=== PATIENT | female | born 1955 | race Caucasian/White ===

== ENCOUNTER 2024-04-28 23:45 | Inpatient (IN) | payer OTHER, SELFPAY ==
[2024-04-28] VITALS (11 sets, daily range): BP systolic 124–193; BP diastolic 91–116; BMI 31.2
[2024-04-28 20:10] LABS: % Basophils 0.1 % (0-2); % Immature Granulocytes 0.2 % (0-0.5); % Lymphocytes 6.6 % (20.5-51.1); % Monocytes 12.7 % (1.7-9.3); % Neutrophils 80.4 % (42.2-75.2); Absolute Lymphocytes 0.6 10^3/uL (1.2-3.4); Absolute Monocytes 1.1 10^3/uL (0.1-0.6); Hematocrit 34.3 % (37.0-47.0); Hemoglobin 12.7 g/dL (12.0-16.0); Mean Corpuscular Hgb 35.1 pg (27.0-31.0); Mean Corpuscular Volume 94.8 fL (81.0-99.0); Mean Platelet Volume 9.5 fL (7.4-10.4); Nucleated Red Blood Cells % 0 %; Platelet Count 200 10^3/uL (130-400); Red Blood Cell Count 3.62 10^6/uL (4.20-5.40); Red Cell Dist. Width 13.3 % (11.5-14.5); White Blood Cell Count 8.7 10^3/uL (4.8-10.8)
[2024-04-28 20:14] LABS: ALT (SGPT) 21 U/L (0-35); AST (SGOT) 29 U/L (14-36); Albumin 4.6 g/dl (3.5-5.0); Alkaline Phosphatase 86 U/L (38-126); Blood Urea Nitrogen 6 mg/dl (7-17); Calcium 9.5 mg/dl (8.4-10.2); Carbon Dioxide 19 mmol/L (22-30); Chloride 92 mmol/L (98-107); Estimated Creatinine Clearance 83 ml/min; Glucose 144 mg/dl (70-99); Potassium 3.8 mmol/L (3.5-5.1); Sodium 122 mmol/L (135-145); Total Bilirubin 0.8 mg/dl (0.2-1.3); Total Protein 7.1 g/dl (6.3-8.2); eGFR > 60.00
[2024-04-28] MEDS: NSS 1000 IV ×2 (20:17→23:22)
[2024-04-28 20:32] LABS: Troponin I < 0.012 ng/ml
[2024-04-28] MEDS: CARDIZEM 10 MG IV (21:30)
[2024-04-28] MEDS: DECADRON 10 MG PO (21:31)
[2024-04-28 21:39] LABS: Monotest Negative (Negative)
[2024-04-28 22:12] LABS: COVID-19 Antigen Negative (Negative)
[2024-04-28] MEDS: LOPRESSOR 5 MG IV (22:24)
[2024-04-28] MEDS: TORADOL 15 MG IV (22:24)
--- NOTE | 2024-04-28 22:29 | ED.GENMED ---
History of Present Illness
General
Chief Complaint: Throat Problem
Time Seen by Provider: 04/28/24 19:48
History of Present Illness
History of Present Illness:
68-year-old female with history of hypertension presenting to the emergency department for sore throat and decreased p.o. intake. Patient reports symptoms for the past few days. She is unable to tolerate her medications secondary to pain with
swallowing. She reports that she is able to handle her own secretions she went to urgent care today and was told that she has 'thrush '. She was started on medications,, however had difficulty taking them secondary to the pain in her throat. She
has not been able to take her blood pressure medications. Denies fever. Denies known sick contacts. Denies chest pain or difficulty breathing. Does feel like her heart has been racing a little bit. Denies any known cardiac history or abnormal
heart rhythms. Denies cough. Denies abdominal pain or vomiting.
Past History
Past History
ED Past Medical History: None
ED Past Surgical History: None
Social History
Tobacco: Non-smoker
Alcohol: Former
Drug: None
Personal: Single
Living: alone
Phy Exam
Physical Exam
Physical Exam:
General: Dry mucous membranes
HEENT: No significant tonsillar swelling. Erythema to the uvula and tonsillar region with exudates. No evidence of thrush. Normal phonation of voice. No trismus. Handling secretions without difficulty
Neck: appears supple
CV: Irregularly irregular rhythm, tachycardic
Resp: No accessory muscle use, no increased work of breathing, lungs clear to auscultation bilaterally
Abd: Soft and non-distended, no tenderness to palpation, normal bowel sounds
Extremities: No deformities, no swelling, no erythema, pulses and sensation intact
Neuro: alert, no focal neurologic deficit
: deferred
Rectal: deferred
Psych: Normal affect
Skin: Intact
Course
Orders/Labs/Results
Orders:
Orders
04/28/24 19:19
Electrocardiogram (*1) Urgent
Reason for Study: Chest Pain
EKG- Treatment ONCE
04/28/24 19:21
Complete Blood Count/With Diff Urgent
Comprehensive Metabolic Panel Urgent
Monotest Urgent
Comment: ADDON
Troponin I Urgent
04/28/24 20:08
0.9% Sodium Chloride 1000 ml [Nss] 1,000 ml IV BOLUS
04/28/24 20:29
0.9% Sodium Chloride 1000 ml [Nss] 1,000 ml IV BOLUS
04/28/24 21:17
Dexamethasone Pf [Decadron] 10 mg PO NOW STA
Diltiazem HCl [Cardizem] 10 mg IV NOW STA
04/28/24 21:27
COVID-19 Antigen Urgent
Source: Nasal Swab
Rapid Strep Group A Urgent
TOYIN Source: Throat/Pharynx
Specimen Description:
Date Specimen was Collected: 04/28/24
Time Specimen was Collected: 21:21
04/28/24 22:16
Ketorolac [Toradol] 15 mg IV NOW STA
Metoprolol [Lopressor] 5 mg IV NOW STA
04/28/24 22:37
Amoxicillin [Amoxil] 500 mg PO NOW STA
Abnormal Lab Results
04/28/24
19:21
RBC 3.62 L 10^6/uL
(4.20-5.40)
Hct 34.3 L %
(37.0-47.0)
MCH 35.1 H pg
(27.0-31.0)
Absolute Neuts (auto) 7.0 H 10^3/uL
(1.4-6.5)
Absolute Lymphs (auto) 0.6 L 10^3/uL
(1.2-3.4)
Absolute Monos (auto) 1.1 H 10^3/uL
(0.1-0.6)
Neutrophils % 80.4 H %
(42.2-75.2)
Lymphocytes % 6.6 L %
(20.5-51.1)
Monocytes % 12.7 H %
(1.7-9.3)
Sodium 122 L mmol/L
(135-145)
Chloride 92 L mmol/L
(98-107)
Carbon Dioxide 19 L mmol/L
(22-30)
BUN 6 L mg/dl
(7-17)
Creatinine 0.4 L mg/dL
(0.6-1.0)
Glucose 144 H mg/dl
(70-99)
04/28/24 20:06
04/28/24 19:21
Vital Signs
Initial and Last Documented VS:
Initial Vital Signs
Temp Pulse Resp BP Pulse Ox
98.4 F 62 18 179/113 99
04/28/24 19:16 04/28/24 19:16 04/28/24 19:16 04/28/24 19:16 04/28/24 19:16
Last Documented Vital Signs
Temp Pulse Resp BP Pulse Ox
98.4 F 159 24 182/100 94
04/28/24 19:16 04/28/24 20:00 04/28/24 20:00 04/28/24 20:00 04/28/24 20:00
MDM/Problems Addressed
MDM/Problems Addressed:
68-year-old female with history of hypertension presenting for sore throat and decreased p.o. intake. Vital signs on arrival significant for tachycardia and hypertension, however patient was unable to take her blood pressure medications prior to
arrival.
On arrival, patient is resting comfortably, no acute distress or discomfort. Patient is handling her secretions without difficulty, no airway compromise. Unremarkable pulmonary examination. On examination of the oropharynx, erythema and exudates,
with concern for strep pharyngitis. [place] is also a consideration. Does not appear consistent with thrush. No evidence of peritonsillar abscess. No concern for retropharyngeal abscess. Normal phonation of voice, no trismus. Patient does appear
dry, dry mucous membranes, significantly tachycardic. Patient is in a flutter, no known history. Will give trial of diltiazem. Will obtain laboratory analysis. Will swab for strep, COVID, mono. Will treat therapeutically with Decadron and
Toradol.
22:30 - Patient remains tachycardic after diltiazem. Will try metoprolol. Labs significant for sodium of 122, concern for dehydration. Will continue fluids. Strep and mono negative. High clinical suspicion for strep pharyngitis, so we will
start antibiotics.
22:40 -patient not a candidate for cardioversion, unclear when patient's abnormal rhythm started. Will start on heparin drip for anticoagulation. Plan for admission for acute dehydration, hyponatremia, and new onset a flutter
*EKG
Interpreted by ED Provider?: Yes
EKG Intrepretation Date: 04/28/24
EKG Intrepretation Time: 21:00
Interpretation: abnormal
Comparison EKG: no comparison EKG present
Heart Rate: 168
Rate: tachycardiac
Rhythm: atrial flutter
[place]: normal axis
QRS Pattern: normal QRS
Ischemia: no ischemia
*Critical Care Note
Total Time (30-74mins, 75-104mins- exclusive of procedures): 40
comment:
Critical care statement: A total of 40 minutes of critical care time was provided for this patient. This includes management of unstable vital signs, evaluation of the patient at bedside, reviewing the patient's pertinent medical records, discussion
with consultants, review of old EKGs and review of pertinent medical records. This time with separate from time utilized to perform the aforementioned documented procedures
ED Attending Note
-
Portions of this chart may have been created with voice recognition software.� Occasional wrong word or��sound alike� substitutions may have occurred due to the inherent limitations of voice recognition software.
Discharge Plan
Departure
Prescriptions:
No Action
sennosides [senna] 1 TABLET tablet
2 tab PO BID 0RF
acetaminophen 325 MG tablet
650 mg PO QID 0RF
tramadol 50 MG tablet
50 mg PO TID Qty: 60 0RF
Rx Instructions:
TID X 14 DAYS
THEN Q6H PRN BREAKTHRU PAIN
hydromorphone 2 MG tablet
2 mg PO Q4HPRN PRN (Reason: MODERATE-SEVERE PAIN) Qty: 90 0RF
Rx Instructions:
dx b/l tka
ongoing therapy
1-2 tabs
magnesium hydroxide 30 ML suspension
30 ml PO DAILYPRN PRN (Reason: constipation) 0RF
aspirin 325 MG tablet,delayed release (DR/EC)
325 mg PO DAILY 0RF
losartan 50 MG tablet
50 mg PO DAILY Qty: 5 0RF
Rx Instructions:
X 5 DAYS-
THEN RESUME HCTZ/LOSARTAN HOME MED
losartan-hydrochlorothiazide 1 EACH tablet
1 tab PO .AM Qty: 0 0RF
Rx Instructions:
RESUME IN 6 DAYS WHEN LOSARTAN ALONE IS FINISHED
---HOLD SYSTOLIC BP <130
tizanidine 2 MG tablet
2 mg PO TID Qty: 45 0RF
Rx Instructions:
X7D
THEN Q6H PRN BREAKTHRU SPAM/PAIN
Referrals:
Ksenia Roberts CRNP [Family Provider] -
Interventions
Interventions:
*Risk Screen - Suicide Last Done: 04/28/24 19:16
*General Assessment Last Done: 04/28/24 19:47
*Neglect/Abuse Screening Last Done: 04/28/24 19:16
ED- Fall Risk Assessment Last Done: 04/28/24 19:47
*ED COVID-19 Vaccine History Last Done: 04/28/24 19:47
ED-EENT Assessment Last Done: 04/28/24 19:47
ED- Pulmonary Assessment Last Done: 04/28/24 19:47
Discharge Date and Time
Print Language: ARABIC
[2024-04-28] MEDS: CARDIZEM 125 IV (23:21)
[2024-04-28] MEDS: AMOXIL 500 MG PO (23:21)
--- NOTE | 2024-04-28 23:56 | HPS.HSE ---
Family Physician
-
Family Physician: LUCÍA Robert
Chief Complaint
-
Persistent sore throat and decreased oral intake.
History of Present Illness
Patient is 68 years old female with history of hypertension and spinal stenosis who presents initially to the urgent care center with persistent sore throat and decreased oral intake. Patient denies any fever and chills. Denies chest pain. She
has mild nonproductive cough mostly with secretions that she is unable to swallow due to severe sore throat. Patient was seen in urgent care center and prescribe medication for thrush, although on my examination patient has no thrush. With
persistent symptoms she presented to emergency room today and additional workup was. Consistent with atrial fibrillation, new onset with rapid ventricular response as well as hyponatremia and sodium 122.
At time of my examination patient is not in distress she has persistent sore throat. Denies any chest pain, shortness of breath.
Medical History
Past Medical History
Past Medical History: Reports HTN; Denies Arrhythmia, CAD, CHF or COPD
Past Surgical History: Reports Other (Spine/orthopedic)
Social History
Tobacco: Smoker
Alcohol: None
Employment: Retired
Family History
Family History: Not pertinent
Allergies / Home Medications
Allergies reflects when Allergies were last updated in [facility].
Home Medications with original date entered in [facility]
Allergy/Medication List:
Pending reconciliation.
Review of Systems
-
A 12 point ROS was completed and negative except as noted: Yes
Physical Exam
Vital Signs
Vital Signs
Temp Pulse Resp BP Pulse Ox
98.4 F 159 24 182/100 94
04/28/24 19:16 04/28/24 20:00 04/28/24 20:00 04/28/24 20:00 04/28/24 20:00
Physical Exam
General: Well Developed, Well Nourished and No Apparent Distress
HEENT: NormoCephalic, Moist mucous membranes and Atraumatic; No Thrush
Respiratory: Clear
Cardiac: S1/S2 and Regular Rhythm; No Murmur or Rub
GI: Soft, Non Tender, Non Distended and Normal Bowel Sounds; No Organomegaly
Rectal: Deferred by Provider
Musculoskeletal: No Clubbing, No Cyanosis and No Edema
Skin: No Rash
Neuro: Nonfocal/grossly intact
Laboratory Results
-
04/28/24 20:06
04/28/24 19:21
Laboratory Results
Lactic Acid Cancelled 04/28/24 20:15
Total Bilirubin 0.8 mg/dl (0.2-1.3) 04/28/24 19:21
AST 29 U/L (14-36) 04/28/24 19:21
ALT 21 U/L (0-35) 04/28/24 19:21
Alkaline Phosphatase 86 U/L (38-126) 04/28/24 19:21
Troponin I < 0.012 ng/ml 04/28/24 19:21
Impression/Plan
-
IMPRESSION:
Presentation with sore throat and low oral intake
Upper respiratory tract infection.
Hyponatremia sodium 122
Normal anion gap metabolic acidosis
Contraction alkalosis.
Atrial fibrillation with rapid trickle response new onset
Accelerated hypertension
Conditions prior to admission:
Essential hypertension
Spinal stenosis with chronic back pain
Active tobacco smoker
PLAN:
Upper respiratory tract infection
COVID-negative
Strep antigen negative.
No thrush on exam but
Check chest x-ray.
Empiric doxycycline.
Supper: Changes
Hyponatremia sodium 122.
Asymptomatic
Presentation with low oral intake.
Clinically dehydrated with contraction alkalosis.
Also suspect due to daily ibuprofen administration for chronic back pain.
Was taken off HCTZ sometime ago due to hyponatremia.
Check urine osmolarity
TSH.
Chest x-ray.
Continue to challenge with isotonic solution with serial BMP.
Nephrology consultation
Atrial fibrillation with rapid ventricular response.
No prior history of arrhythmias or cardiovascular conditions other than hypertension.
Initiated on IV Cardizem with better controlled rate. Continue
Echocardiogram
Cardiology consultation in AM.
Further decision for thromboembolic prophylaxis according to workup
Essential hypertension
Continue losartan 100 mg daily
Hold amlodipine while on calcium channel michelle.
Chronic back pain with spinal stenosis
Continue gabapentin
Hold ibuprofen, avoid NSAIDs with hyponatremia
Full code
DVT prophylaxis subcu heparin.
[2024-04-29] VITALS (10 sets, daily range): BP systolic 130–188; BP diastolic 60–103; BMI 31.2
[2024-04-29] MEDS: ANESTHETIC LOZENGE 1 LOZENGE PO ×2 (04:01→11:55)
[2024-04-29] MEDS: HEPARIN 5000 UNITS SC ×2 (04:01→08:16)
[2024-04-29] MEDS: VIBRAMYCIN 100 MG PO (04:02)
[2024-04-29] MEDS: NSS 1000 IV (04:02)
--- NOTE | 2024-04-29 04:33 | PTCARENOTE ---
Patient arrived from ED, able to walk into room and void in the bathroom. Patient tachycardic when ambulating to bathroom. Provider notified of increased HR and BP. Urine sample and blood work drawn, VAT nurse at bedside to place second line for
IVF.
[2024-04-29 04:35] LABS: Urine Sodium 90 mmol/L (30-90)
[2024-04-29 04:44] LABS: Osmolality Urine 234 mOsm/kg (300-900)
[2024-04-29] MEDS: COMPAZINE 5 MG IV (04:44)
[2024-04-29 04:49] LABS: Blood Urea Nitrogen 5 mg/dl (7-17); Carbon Dioxide 19 mmol/L (22-30); Chloride 95 mmol/L (98-107); Estimated Creatinine Clearance 83 ml/min; Glucose 156 mg/dl (70-99); Potassium 3.7 mmol/L (3.5-5.1); Sodium 123 mmol/L (135-145); eGFR > 60.00
[2024-04-29 04:56] LABS: Troponin I < 0.012 ng/ml
[2024-04-29 05:01] LABS: Magnesium 1.5 mg/dl (1.6-2.3)
--- NOTE | 2024-04-29 05:18 | W.PN.UPDATE ---
Update Note
Progress Note Update
-Patient currently on Cardizem drip 10mg/hr, current hr 150s, bp 160/102.SPO2 96% RA, temp 98.5. Denied chest pain or SOB, but complained of constant cough.
-Morning lab reviewed, mag is 1.5 repleted as needed, and will increase Cardizem drip to 15mg/hr.
-Chest x-ray was done on admission and result is pending, cough medicine was added as needed.
--- NOTE | 2024-04-29 05:21 | PTCARENOTE ---
Provider notified of magnesium value, BP and HR. New order for magnesium bolus.
[2024-04-29] MEDS: MAGNESIUM SULFATE 102 GRAMS IV (05:32)
[2024-04-29 05:44] LABS: TSH 0.34 uIU/ml (0.47-4.68)
--- NOTE | 2024-04-29 06:00 | PTCARENOTE ---
Provider order to increase Diltiazem gtt to 15mg/hr.
[2024-04-29] MEDS: COZAAR 100 MG PO (08:15)
[2024-04-29] MEDS: NEURONTIN 300 MG PO ×3 (08:16→21:00)
[2024-04-29] MEDS: LOPRESSOR 5 MG IV (09:49)
--- NOTE | 2024-04-29 10:24 | PTOTSP ---
ST Screening
Chart reviewed. Pt from home for sore throat and odynophagia with reduced PO intake as well as noncompliance with medications. Pt admitted with afib with RVR, hyponatremia, and presumed URI. Pt reportedly with mild non productive cough and varying
reports about difficulty managing secretions due to difficulty swallowing. CXR pending. Pt is afebrile and without leukocytosis. Pt is currently on a regular diet and thin liquids - no documentation of any difficulties with meals thus far. No hx of
DRUG AND ALCOHOL COUNSELLOR services. No other contributory medical conditions.
Would recommend comprehensive DRUG AND ALCOHOL COUNSELLOR assessment at this time to rule-out any other contributory factors for odynophagia as well as ensure pt is protecting airway with secretions and PO intake. Please place consult when able. Thank you.
--- NOTE | 2024-04-29 10:51 | W.PN.HOSP.TC ---
Today's Communication/Plan
-
consult cards
await renal
follow labs
Assessment / Plan
Assessment / Plan
pt is a 68 year old female
new onset atrial fibrillation with RVR--no prior history--agree with ECHO--cont cardizem drip--likely needs AC--consult cards
Hyponatremia sodium 122-- likely due to low oral intake/ dehydration--Also suspect SIADH due to daily ibuprofen administration for chronic back pain--Was taken off HCTZ sometime ago due to hyponatremia--urine osmolality low at 234, urine sodium
90--TSH low 0.34--follow labs--await renal
hypomagnesemia--replete, follow labs
Upper respiratory tract infection--COVID-negative--Strep antigen negative--Empiric doxycycline?--would d/c
Essential hypertension--Continue losartan 100 mg daily--Hold amlodipine while on calcium channel michelle.
Chronic back pain with spinal stenosis--Continue gabapentin--Hold ibuprofen, avoid NSAIDs with hyponatremia
code status --Full code
DVT prophylaxis subcu heparin.
Anticipated Discharge: > 48 hours
Subjective/Interval History
-
Date of Service: April 29, 2024
pt not feeling well but not specific
Objective Data
-
Labs:
Laboratory Results
04/29/24
04:11
Sodium 123 L
Potassium 3.7
Chloride 95 L
Carbon Dioxide 19 L
BUN 5 L
Creatinine 0.4 L
Glucose 156 H
Calcium 9.0
Vital Signs:
max temp for 24 hours
04/29/24
07:00
Temp 98.5 F
Vital Signs
Temp Pulse Resp BP Pulse Ox
98.5 F 135 18 151/90 97
04/29/24 07:00 04/29/24 09:49 04/29/24 07:00 04/29/24 09:49 04/29/24 07:00
I&O
04/28/24 04/29/24 04/30/24
06:59 06:59 06:59
Intake Total 880 / 880
Balance 880 / 880
Review of Systems
-
All other systems: Reviewed and negative
Physical Exam
-
General: Well Developed, Well Nourished and No Apparent Distress
HEENT: Normocephalic and Atraumatic
Respiratory: Clear to Auscultation; Negative Wheezes, Rhonchi or Crackles
Cardiac: Irregular Rhythm
GI: Soft, Nontender, Nondistended and Normal Bowel Sounds
Musculoskeletal: No Clubbing, No Cyanosis and No Edema
Neuro: Awake
Psych: Calm
[2024-04-29] MEDS: SODIUM CHLORIDE 3% 250 IV (11:54)
[2024-04-29] MEDS: MAGNESIUM SULFATE 50 IV (11:54)
[2024-04-29 12:04] LABS: ALT (SGPT) 19 U/L (0-35); AST (SGOT) 26 U/L (14-36); Alkaline Phosphatase 84 U/L (38-126); Blood Urea Nitrogen 6 mg/dl (7-17); Carbon Dioxide 17 mmol/L (22-30); Chloride 95 mmol/L (98-107); Estimated Creatinine Clearance 83 ml/min; Glucose 124 mg/dl (70-99); Magnesium 1.8 mg/dl (1.6-2.3); Potassium 3.7 mmol/L (3.5-5.1); Sodium 122 mmol/L (135-145); Total Bilirubin 0.7 mg/dl (0.2-1.3); Total Protein 6.4 g/dl (6.3-8.2); eGFR > 60.00
--- NOTE | 2024-04-29 12:04 | W.CON.NEPH ---
Consultation
-
Date/Time Consultation Requested: April 29, 2024 8 AM
Date/Time Consultation Performed: April 29, 2024 9 AM
Requesting Provider: Dr. Escoto
Performing Provider: Dr. Guzman
Reason for Consultation: Hyponatremia
Medical History
-
Chief Complaint: Difficulty swallowing
History of Present Illness:
This is a 60-year-old female with hypertension on a multidrug regimen previously well-controlled, hyperlipidemia controlled with statin therapy. She does have orthopedic issues and pain for which she has a lidocaine patch. She also uses NSAIDs as
required. Recently she had developed a significant sore throat with pain with swallowing. This apparently has been present for some time at least since March. She has seen her primary care physician. She says that she has lost 7 pounds since that
timeframe because of decreased oral intake. She also says that she does not drink very much fluid, likely less than 40 ounces per day. Because of these persistent symptoms she finally came to the emergency room. She was noted to also have new
onset atrial fibrillation with rapid ventricular rate and a sodium level of 122. She was hypertense
Past Medical History
Hypertension, orthopedic surgery, hyperlipidemia
Social History
Tobacco: Smoker
Alcohol: Daily
Family History
No CKD
Allergies / Home Medications
Allergy/AdvReac Type Severity Reaction Status Date / Time
No Known Allergies Allergy Verified 04/28/24 19:16
�Medication �Instructions �Recorded �Confirmed �Type
amlodipine 2.5 mg tablet 2.5 mg PO DAILY Blood Pressure 04/29/24 04/29/24 History
gabapentin 300 mg capsule 300 mg PO TID Pain 04/29/24 04/29/24 History
ibuprofen 400 mg tablet 400 mg PO Q8H Pain 04/29/24 04/29/24 History
ibuprofen 800 mg tablet 800 mg PO TID Pain 04/29/24 04/29/24 History
lidocaine 4 % topical patch 1 patch topical DAILY PRN pain 04/29/24 04/29/24 History
losartan 100 mg tablet 100 mg PO DAILY Blood Pressure 04/29/24 04/29/24 History
simvastatin 10 mg tablet 10 mg PO HS High Cholesterol 04/29/24 04/29/24 History
Review of Systems
-
Difficulty swallowing as above. She has good appetite. No issues with urine output.
All other systems: Negative unless noted
Physical Exam
Vital Signs
Vital Signs
Temp Pulse Resp BP Pulse Ox
97.8 F 77 17 131/78 96
04/29/24 11:03 04/29/24 11:03 04/29/24 11:03 04/29/24 11:03 04/29/24 11:03
Lab Results
WBC Cancelled 04/28/24 20:06
RBC Cancelled 04/28/24 20:06
Hgb Cancelled 04/28/24 20:06
Hct Cancelled 04/28/24 20:06
Plt Count Cancelled 04/28/24 20:06
eGFR > 60.00 04/29/24 04:11
Physical Exam
Patient is awake alert oriented and in no distress. Mood and affect were pleasant, insight and judgment were good. Pupils are equal round and reactive to light, extraocular movements are intact, sclera were anicteric. Hearing was normal, ears and
nose are intact. Oropharynx was clear. Neck was supple with trachea midline and no thyromegaly. Heart was regular rate and rhythm without rubs. Lower extremities without edema. Lungs were clear to auscultation bilaterally and with normal
excursion. Abdomen was soft, nontender, with normal active bowel sounds, and no hepatosplenomegaly. Skin was without rash and with normal turgor.
Data Reviewed
-
Radiology: Image Personally Visualized and interpreted (Chest x-ray on April 29, 2024 by my reading shows no acute disease)
Medical Tests (Nuc Med, Echo etc): Image Personally Visualized and interpreted (EKG on 04/28/2024 by read shows atrial flutter nonspecific ST-T wave)
Labs: Labs Reviewed by me (Hemoglobin 12.7, sodium 122, potassium 3.7, chloride 95, bicarbonate 17, BUN 6, creatinine 0.4, magnesium 1.8, urine osmolality 234, urine sodium 90)
Old Records: Reviewed (On February 02, 2018 sodium 133)
Assessment/Plan
-
Assessment
Hyponatremia
Metabolic acidosis
Difficulty swallowing decreased oral intake
Hypertension
Hyperlipidemia
A-fib rapid ventricular rate
Hypomagnesemia
Plan
Given her inability to take consistent oral intake we will use hypertonic saline
Serial BMP
Discontinue isotonic IV fluids
We may consider intravenous Lasix if needed
Replete magnesium
She has a nonanion gap metabolic acidosis and may benefit from oral bicarbonate once oral intake improves
[2024-04-29 12:15] LABS: Troponin I < 0.012 ng/ml
--- NOTE | 2024-04-29 14:04 | CON.CAR ---
Consultation
Consultation Request
Date/Time Consultation Requested: 04/29/2024
Date/Time Consultation Performed: 04/29/2024
Requesting Provider: Dr. Escoto
Performing Provider: Dr. Ruiz
Reason for Consultation: New onset atrial fibrillation with RVR
Medical History
-
Chief Complaint: Difficulty swallowing/throat pain
History of Present Illness:
68-year-old female with hypertension, hyperlipidemia, obesity, and chronic continued cigarette use (typically one half PPD since age of 16) admitted with throat pain. Patient presented with hypertensive crisis (blood pressure 189/116 mmHg) and was
found to be in atrial fibrillation with RVR (new onset). Patient was also found to have significant electrolyte abnormalities (hyponatremia low bicarbonate) and low TSH. Cardiology was consulted for atrial fibrillation. Patient denies chest pain
or shortness of breath, but states that she has had intermittent palpitations over the past few days. The patient drinks 1-2 glasses of wine daily.
Past Medical History
Past Medical History: HTN and Hypercholesterolemia
Past Surgical History: Orthopedic (Laminectomy (2017), bilateral knee replacements (01/2018)) and Other
Social History
Tobacco: Smoker (One half PPD since age 16)
Alcohol: Daily
Drug: None
Family History
Family History: Reviewed & Not Pertinent
Allergies / Home Medications
Allergy/AdvReac Type Severity Reaction Status Date / Time
No Known Allergies Allergy Verified 04/28/24 19:16
�Medication �Instructions �Recorded �Confirmed �Type
amlodipine 2.5 mg tablet 2.5 mg PO DAILY Blood Pressure 04/29/24 04/29/24 History
gabapentin 300 mg capsule 300 mg PO TID Pain 04/29/24 04/29/24 History
ibuprofen 400 mg tablet 400 mg PO Q8H Pain 04/29/24 04/29/24 History
ibuprofen 800 mg tablet 800 mg PO TID Pain 04/29/24 04/29/24 History
lidocaine 4 % topical patch 1 patch topical DAILY PRN pain 04/29/24 04/29/24 History
losartan 100 mg tablet 100 mg PO DAILY Blood Pressure 04/29/24 04/29/24 History
simvastatin 10 mg tablet 10 mg PO HS High Cholesterol 04/29/24 04/29/24 History
Review of Systems
-
History Source: Patient
All other systems: Negative unless noted
Musculoskeletal: Joint Pain
Physical Exam
Vital Signs
Temp Pulse Resp BP Pulse Ox
97.8 F 77 17 131/78 96
04/29/24 11:03 04/29/24 11:03 04/29/24 11:03 04/29/24 11:03 04/29/24 11:03
Lab Results
04/28/24 20:06
Troponin I < 0.012 ng/ml 04/29/24 11:24
Physical Exam
General: No Apparent Distress and Comfortable
HEENT: Normocephalic
Respiratory: Rhonchi (Scant bibasilar)
Cardiac: S1/S2, Regular Rhythm, Murmur (2/6 FERNANDA) and Peripheral Edema (Trace)
Breast: Deferred by me
GI: Soft
Rectal: Deferred by Provider
Musculoskeletal: No Clubbing, No Cyanosis and Edema (Trace)
Skin: Warm and Dry
Neuro: AO x 3
Psych: Calm
Impression / Plan
-
68-year-old female with hypertension, hyperlipidemia, obesity, and chronic continued cigarette use (typically one half PPD since age of 16) admitted with throat pain. Patient presented with hypertensive crisis (blood pressure 189/116 mmHg) and was
found to be in atrial fibrillation with RVR (new onset). Patient was also found to have significant electrolyte abnormalities (hyponatremia low bicarbonate) and low TSH. Cardiology was consulted for atrial fibrillation. Patient denies chest pain
or shortness of breath, but states that she has had intermittent palpitations over the past few days. The patient drinks 1-2 glasses of wine daily.
New onset paroxysmal atrial fibrillation with RVR:
-The patient converted back to sinus rhythm on a Cardizem drip this morning.
-Will discontinue Cardizem drip and placed on Cardizem CD 180 mg daily.
-Transthoracic echocardiogram tomorrow.
-Patient will need to undergo an eventual ischemic workup (outpatient stress test); cardiac enzymes negative.
-Will start the patient on a heparin drip for now; transition to NOAC prior to discharge.
-Continue insurance and benefits clerk.
-Will obtain an EKG now that the patient is in sinus rhythm
Electrolyte abnormalities:
-Patient with significant hyponatremia 122, bicarbonate at 17.
-In a chronic smoker, malignancy should be included in differential diagnosis.
-Nephrology following/managing.
-TSH is low; management as per primary Hospitalist team.
Hypertensive crisis:
-Blood pressure is now controlled.
-PO Cardizem as above.
-Continue to trend.
Systolic heart murmur:
-Loudest at RUSB; likely secondary to aortic stenosis.
-Echocardiogram tomorrow.
Hyperlipidemia:
-Check lipid panel
-Continue statin.
Cigarette smoker:
-Counseled on the importance of cessation.
Obesity:
-Weight loss and regular exercise recommended
Data Reviewed
-
EKG: Report Reviewed by me
Labs: Labs Reviewed by me
[2024-04-29] MEDS: CARDIZEM CD 180 MG PO (14:26)
[2024-04-29] MEDS: HEPARIN 4000 UNITS IV (14:26)
[2024-04-29 15:02] LABS: Blood Urea Nitrogen 7 mg/dl (7-17); Carbon Dioxide 17 mmol/L (22-30); Chloride 96 mmol/L (98-107); Estimated Creatinine Clearance 83 ml/min; Glucose 117 mg/dl (70-99); Potassium 3.7 mmol/L (3.5-5.1); Sodium 122 mmol/L (135-145); eGFR > 60.00
[2024-04-29 15:07] LABS: APTT 28.9 Sec (23.4-35.0)
[2024-04-29 15:20] LABS: Hematocrit 30.8 % (37.0-47.0); Hemoglobin 11.5 g/dL (12.0-16.0); Mean Corp Hgb Conc. 37.3 g/dL (33.0-37.0); Mean Corpuscular Hgb 35.2 pg (27.0-31.0); Mean Corpuscular Volume 94.2 fL (81.0-99.0); Mean Platelet Volume 9.8 fL (7.4-10.4); Platelet Count 223 10^3/uL (130-400); Red Blood Cell Count 3.27 10^6/uL (4.20-5.40); Red Cell Dist. Width 13.2 % (11.5-14.5); White Blood Cell Count 7.6 10^3/uL (4.8-10.8)
--- NOTE | 2024-04-29 16:15 | CM ---
Initial Assessment completed
Pharmacy verified: [facility], [id number] [place]
Patient lives alone in a one floor modular home; Ramp to enter; bath has walk-in shower w/ grab bar and bench
Independent with ambulation, ADLs; drives
Transportation: Friend will provide ride home
No SNF history
If home health needed, preference is [facility]
Plan: discharge to home when medically stable
[2024-04-29] MEDS: HEPARIN 25000 UNITS/250 ML IV (16:48)
[2024-04-29] MEDS: FIRST-MOUTHWASH BLM SUSPENSION 5 ML PO (21:45)
[2024-04-29 22:56] LABS: APTT 46.2 Sec (23.4-35.0)
[2024-04-30 03:41] VITALS: BP 149/82
[2024-04-30 06:27] LABS: Hematocrit 30.1 % (37.0-47.0); Hemoglobin 11.1 g/dL (12.0-16.0); Mean Corp Hgb Conc. 36.9 g/dL (33.0-37.0); Mean Corpuscular Hgb 34.8 pg (27.0-31.0); Mean Corpuscular Volume 94.4 fL (81.0-99.0); Mean Platelet Volume 9.5 fL (7.4-10.4); Platelet Count 211 10^3/uL (130-400); Red Blood Cell Count 3.19 10^6/uL (4.20-5.40); Red Cell Dist. Width 13.2 % (11.5-14.5); White Blood Cell Count 7.7 10^3/uL (4.8-10.8)
[2024-04-30 06:36] LABS: APTT 55.9 Sec (23.4-35.0)
[2024-04-30 06:54] LABS: ALT (SGPT) 19 U/L (0-35); AST (SGOT) 27 U/L (14-36); Albumin 3.7 g/dl (3.5-5.0); Alkaline Phosphatase 75 U/L (38-126); Blood Urea Nitrogen 9 mg/dl (7-17); Calcium 8.9 mg/dl (8.4-10.2); Carbon Dioxide 20 mmol/L (22-30); Chloride 101 mmol/L (98-107); Estimated Creatinine Clearance 83 ml/min; Glucose 101 mg/dl (70-99); Magnesium 1.9 mg/dl (1.6-2.3); Potassium 3.3 mmol/L (3.5-5.1); Sodium 128 mmol/L (135-145); Total Bilirubin 0.6 mg/dl (0.2-1.3); eGFR > 60.00
[2024-04-30 07:00] VITALS: BP 139/71
[2024-04-30] MEDS: COZAAR 100 MG PO (07:51)
[2024-04-30] MEDS: CARDIZEM CD 180 MG PO (07:51)
[2024-04-30] MEDS: NEURONTIN 300 MG PO ×3 (07:51→21:01)
[2024-04-30] MEDS: FIRST-MOUTHWASH BLM SUSPENSION 5 ML PO ×2 (07:53→16:30)
--- NOTE | 2024-04-30 09:03 | W.PN.CD ---
Today's Communication / Plan
-
-The patient remains in sinus rhythm; Cardizem drip discontinued.
-PO Cardizem CD 180 mg daily, but patient is unable to swallow pills or eat/drink due to dysphagia and odynophagia--recommend ENT evaluation.
-Transthoracic echocardiogram today.
-Continue heparin drip for now; transition to NOAC prior to discharge once swallowing issues resolved.
-TSH is low--will check free T4; management as per primary Hospitalist team.
-Will check lipid panel and hemoglobin A1c.
Impression / Plan
-
68-year-old female with hypertension, hyperlipidemia, obesity, and chronic continued cigarette use (typically one half PPD since age of 16) admitted with throat pain. Patient presented with hypertensive crisis (blood pressure 189/116 mmHg) and was
found to be in atrial fibrillation with RVR (new onset). Patient was also found to have significant electrolyte abnormalities (hyponatremia low bicarbonate) and low TSH. Cardiology was consulted for atrial fibrillation. Patient denies chest pain
or shortness of breath, but states that she has had intermittent palpitations over the past few days. The patient drinks 1-2 glasses of wine daily.
New onset paroxysmal atrial fibrillation with RVR:
-The patient remains in sinus rhythm; Cardizem drip discontinued.
-PO Cardizem CD 180 mg daily, but patient is unable to swallow pills or eat/drink due to dysphagia and odynophagia--recommend ENT evaluation.
-Transthoracic echocardiogram today.
-Continue heparin drip for now; transition to NOAC prior to discharge once swallowing issues resolved.
-Continue ink grinder.
Electrolyte abnormalities:
-Patient with significant hyponatremia 122, bicarbonate at 17; improving.
-In a chronic smoker, malignancy should be included in differential diagnosis.
-Nephrology following/managing.
-TSH is low--will check free T4; management as per primary Hospitalist team.
Hypertensive crisis:
-Blood pressure remains controlled.
-Once tolerating pills, continue PO Cardizem and losartan.
Systolic heart murmur:
-Loudest at RUSB; likely secondary to aortic stenosis.
-Echocardiogram today.
Hyperlipidemia:
-Will check lipid panel and hemoglobin A1c.
Hyperlipidemia:
-Check lipid panel
-Continue statin.
Cigarette smoker:
-Counseled on the importance of cessation.
Obesity:
-Weight loss and regular exercise recommended
Physical Exam
Vital Signs/Labs
Vital Signs
Temp Pulse Resp BP Pulse Ox
98.5 F 81 17 139/71 97
04/30/24 07:00 04/30/24 07:00 04/30/24 07:00 04/30/24 07:00 04/30/24 07:00
04/29/24 04/30/24 05/01/24
06:59 06:59 06:59
Actual Weight 74.843 kg
04/30/24 05:56
04/30/24 05:56
APTT 55.9 Sec (23.4-35.0) H 04/30/24 05:57
Magnesium 1.9 mg/dl (1.6-2.3) 04/30/24 05:56
TSH 0.34 uIU/ml (0.47-4.68) L 04/29/24 04:11
LAB Results
04/28/24 04/29/24 04/29/24
19:21 04:11 11:24
Troponin I < 0.012 < 0.012 < 0.012
Physical Exam
Constitutional: No acute distress and Comfortable
EENT: Anicteric
Cardiovascular: Rhythm & rate is regular, Pedal edema is absent, Systolic murmur present (2/) and S1S2 is normal
Respiratory: Respiratory effort normal and Lungs clear to auscul.
GI: Soft
Neuro/Psych: AO x 3
Other: Skin (Warm, dry, intact)
Data Reviewed
-
Date of Service: April 30, 2024
EKG: Tracing Personally Visualized and interpreted (Telemetry: Sinus rhythm)
Medical Tests (PFT, Pathology etc): Discussed with Patient
Labs: Labs Reviewed by me
[2024-04-30] MEDS: KCL 270 MEQ IV (09:15)
[2024-04-30 10:58] VITALS: BP 141/72
--- NOTE | 2024-04-30 11:56 | PTOTSP ---
ST Acute Care Evaluation
Pt presents with a suspected pharyngeal dysphagia as characterized by occasional wet vocal quality, throat clearing, and coughing at baseline prior to PO intake, as well as occasional prompt and delayed, strong coughing with both solids and liquid
ingestion. It is difficult to determine whether these symptoms are pt's originating problem (i.e., organic pharyngeal dysphagia) or a reactive response to pharyngeal and laryngeal irritation from ongoing coughing or another underlying dx. Pt's
'burning sensation' description with swallowing as well as the delayed onset of coughing with PO is suspicious for possible GERD/LPR.
Recommendations:
- Continue with regular solids and thin liquids - choose softer items that will assuage throat pain.
- Medications: try whole in pureed consistencies; crush if needed.
- Aspiration precautions: HOB upright for all PO intake, small bites/sips, alternate bites/sips, and cough when needed.
- CLINICAL DATA ASSISTANT will continue to follow to ensure pt is improving her tolerance of PO intake and protecting her airway consistently, as well as to determine whether pt would benefit from additional objective/instrumental swallow assessments.
- Will look out for ENT to assessment results.
- Consider GI consult if LPR/GERD is suspected as originating cause of laryngeal/pharyngeal irritation.
--- NOTE | 2024-04-30 12:02 | CON.MD ---
Consultation - Medical
-
Pt seen and consult dictated.
Laryngoscopy performed at bedside.
Results c/w acute epiglotitis and possible thrush component.
Will treat with appropriate antibiotics and antifungals.
--- NOTE | 2024-04-30 12:13 | W.PN.NEPH.PH ---
Today's Communication / Plan
-
- sodium bicarb
- replace K
- trend BMPs
Assessment/Plan
-
Assessment
Hyponatremia
Metabolic acidosis
Difficulty swallowing decreased oral intake
Hypertension
Hyperlipidemia
A-fib rapid ventricular rate
Hypomagnesemia
Plan
s/p HTS with Na improving from 122 --> 128. of note, the patient does have some baseline hyponatremia
K repletion is ongoing which will further correct Na
Will give IV sodium bicarb as well to correct NAGMA, likely will need oral bicarb once she is able to take better PO
no need for IV lasix currently
Serial BMP
-
-
Date of Service: April 30, 2024
CC / HPI / ROS
-
Chief Complaint:
hyponatremia
History of Present Illness:
Na 122 --> 128 with HTS
still unable to tolerate PO
Review of Systems:
feeling improved
minimal PO intake
Labs
-
Labs:
WBC 7.7 10^3/uL (4.8-10.8) 04/30/24 05:56
RBC 3.19 10^6/uL (4.20-5.40) L 04/30/24 05:56
Hgb 11.1 g/dL (12.0-16.0) L 04/30/24 05:56
Hct 30.1 % (37.0-47.0) L 04/30/24 05:56
Plt Count 211 10^3/uL (130-400) 04/30/24 05:56
Sodium 128 mmol/L (135-145) L 04/30/24 05:56
Potassium 3.3 mmol/L (3.5-5.1) L 04/30/24 05:56
Chloride 101 mmol/L (98-107) 04/30/24 05:56
Carbon Dioxide 20 mmol/L (22-30) L 04/30/24 05:56
BUN 9 mg/dl (7-17) 04/30/24 05:56
Creatinine 0.5 mg/dL (0.6-1.0) L 04/30/24 05:56
eGFR > 60.00 04/30/24 05:56
Glucose 101 mg/dl (70-99) H 04/30/24 05:56
Calcium 8.9 mg/dl (8.4-10.2) 04/30/24 05:56
Albumin 3.7 g/dl (3.5-5.0) 04/30/24 05:56
Physical Exam
-
Vital Signs:
Vital Signs
Temp Pulse Resp BP Pulse Ox
98.2 F 85 17 141/72 97
04/30/24 10:58 04/30/24 10:58 04/30/24 10:58 04/30/24 10:58 04/30/24 10:58
Cardiovascular:: Regular rate and rhythm
Respiratory:: Bilateral: CTA
Lung Excursion:: Normal
Abdomen:: Nontender and Soft
Bowel Sounds:: Normal
Extremity Edema:: None: Bilateral:
[place] Catheter: No
--- NOTE | 2024-04-30 14:04 | W.PN.HOSP.TC ---
Today's Communication/Plan
-
ENT eval
Advance diet as toelrated
Maintain tele monitor esme since off of cardizem gtt and has not recieved po cardizem as of yet
Assessment / Plan
Assessment / Plan
NAD, resting comfortably in bed
Scleral anicteric
Moist mucous membranes
No JVD, no thyromegaly, no enlarged mandibular node
CTA bilateral
Normal S1-S2 no murmurs
Soft nontender nondistended bowel sounds active
No peripheral pitting edema
Moves extremities spontaneously
AAOx3
New onset atrial fibrillation with RVR . 2D echocardiogram pending. Continue Cardizem p.o. once able to to tolerate p.o. intake, continue heparin drip, heparin protocol, every 6 PTT
-Cardiology recommending outpatient ischemic workup
Hyponatremia improving in part likely related to poor p.o. intake. Expect to continue to improve on fluids
Odynophagia concern for epiglottitis, ENT consult for possible NPL.
Hypokalemia replete as needed
Advance diet as tolerated
Anticipated Discharge: Within 24 hours
Subjective/Interval History
-
Date of Service: April 30, 2024
Seen and examined. No new complaints. No acute overnight events.
Continues to have difficulty swallowing. Unable to drink tea as she is complaining of pain
States that this started to occur when she was working in her garden. Did not have any throat swelling or difficulty with handling drool.
No external compression noted on exam
Objective Data
-
Labs:
Laboratory Results
04/30/24 04/30/24 04/30/24
05:56 05:57 13:01
WBC 7.7
Hgb 11.1 L
Hct 30.1 L
Plt Count 211
APTT 55.9 H Pending
Sodium 128 L
Potassium 3.3 L
Chloride 101
Carbon Dioxide 20 L
BUN 9
Creatinine 0.5 L
Glucose 101 H
Calcium 8.9
Total Bilirubin 0.6
AST 27
ALT 19
Alkaline Phosphatase 75
Vital Signs:
Vital Signs
Temp Pulse Resp BP Pulse Ox
98.2 F 85 17 141/72 97
04/30/24 10:58 04/30/24 10:58 04/30/24 10:58 04/30/24 10:58 04/30/24 10:58
I&O
04/29/24 04/30/24 05/01/24
06:59 06:59 06:59
Intake Total 880 / 880 1080 / 1080
Balance 880 / 880 1080 / 1080
[2024-04-30] MEDS: HEPARIN 25000 UNITS/250 ML IV (14:17)
[2024-04-30 14:24] LABS: APTT 57.8 Sec (23.4-35.0)
[2024-04-30 15:00] VITALS: BP 156/80
[2024-04-30] MEDS: SODIUM BICARBONATE 1150 MEQ IV (16:23)
[2024-04-30] MEDS: UNASYN IV ×2 (16:24→21:01)
--- NOTE | 2024-04-30 17:03 | CM ---
Case management following for d/c planning
Chart reviewed
Had laryngoscopy today
Antibiotics/antifungals
CM will follow for d/c needs
[2024-04-30] MEDS: ANESTHETIC LOZENGE 1 LOZENGE PO (18:18)
[2024-04-30 19:00] VITALS: BP 165/87
[2024-04-30] MEDS: ROBITUSSIN 100 MG PO (21:01)
[2024-04-30 21:11] LABS: APTT 76.3 Sec (23.4-35.0)
[2024-04-30] MEDS: LOPRESSOR 5 MG IV (22:03)
--- NOTE | 2024-04-30 22:15 | PTCARENOTE ---
Patient's HR in 140s-150s ( Afib). Lopressor IV given as ordered.
[2024-04-30 23:32] VITALS: BP 153/85
[2024-05-01] VITALS (7 sets, daily range): BP systolic 124–161; BP diastolic 70–99; BMI 31.2
[2024-05-01] MEDS: UNASYN IV ×4 (02:34→20:36)
[2024-05-01] MEDS: SODIUM BICARBONATE 1150 MEQ IV ×2 (02:46→16:31)
[2024-05-01 04:01] LABS: APTT 75.5 Sec (23.4-35.0)
[2024-05-01 04:02] LABS: HDL Cholesterol 80 mg/dl; LDL Cholesterol, Calculated 63 mg/dl; Total Cholesterol 157 mg/dl (50-199); Triglyceride 70 mg/dl (10-149); Very Low Density Lipoprotein 14 mg/dl (0-30)
[2024-05-01] MEDS: HEPARIN 25000 UNITS/250 ML IV ×2 (04:42→20:49)
[2024-05-01 04:51] LABS: Hematocrit 31.9 % (37.0-47.0); Hemoglobin 11.9 g/dL (12.0-16.0); Mean Corp Hgb Conc. 37.3 g/dL (33.0-37.0); Mean Corpuscular Hgb 35.4 pg (27.0-31.0); Mean Corpuscular Volume 94.9 fL (81.0-99.0); Mean Platelet Volume 9.7 fL (7.4-10.4); Platelet Count 242 10^3/uL (130-400); Red Blood Cell Count 3.36 10^6/uL (4.20-5.40); White Blood Cell Count 6.9 10^3/uL (4.8-10.8)
[2024-05-01] MEDS: ANESTHETIC LOZENGE 1 LOZENGE PO ×3 (08:07→17:04)
--- NOTE | 2024-05-01 08:29 | W.PN.CD ---
Today's Communication / Plan
-
-The patient reverted back to atrial fibrillation with RVR; currently experiencing palpitations.
-Patient still unable to swallow pills due to epiglottitis (appreciate ENT input); will place back on Cardizem drip and hold PO Cardizem CD 180 mg daily.
-Echocardiogram yesterday revealed an LVEF of 65-70% and aortic sclerosis without stenosis.
-Continue heparin drip; transition to NOAC prior to discharge once swallowing issues resolved.
-Cholesterol is fairly controlled; hemoglobin A1c pending (goal LDL would be less than 55, if diabetic).
Impression / Plan
-
68-year-old female with hypertension, hyperlipidemia, obesity, and chronic continued cigarette use (typically one half PPD since age of 16) admitted with throat pain. Patient presented with hypertensive crisis (blood pressure 189/116 mmHg) and was
found to be in atrial fibrillation with RVR (new onset). Patient was also found to have significant electrolyte abnormalities (hyponatremia low bicarbonate) and low TSH. Cardiology was consulted for atrial fibrillation. Patient denies chest pain
or shortness of breath, but states that she has had intermittent palpitations over the past few days. The patient drinks 1-2 glasses of wine daily.
New onset paroxysmal atrial fibrillation with RVR:
-The patient reverted back to atrial fibrillation with RVR; currently experiencing palpitations.
-Patient still unable to swallow pills due to epiglottitis (appreciate ENT input); will place back on Cardizem drip and hold PO Cardizem CD 180 mg daily.
-Echocardiogram yesterday revealed an LVEF of 65-70% and aortic sclerosis without stenosis.
-Continue heparin drip; transition to NOAC prior to discharge once swallowing issues resolved.
-Continue machine ii coremaker.
-Eventual outpatient stress test for ischemic evaluation.
Electrolyte abnormalities:
-Patient with significant hyponatremia 122, bicarbonate at 17; improving.
-In a chronic smoker, malignancy should be included in differential diagnosis.
-Nephrology following/managing.
-TSH is low, but free T4 is normal.
Hypertensive crisis:
-Blood pressure is starting to increase as patient is unable to swallow pills.
-Starting Cardizem drip as above; continue to monitor.
Systolic heart murmur:
-Aortic sclerosis without stenosis..
Hyperlipidemia:
-Cholesterol is fairly controlled; hemoglobin A1c pending (goal LDL would be less than 55, if diabetic).
-Continue statin.
Cigarette smoker:
-Counseled on the importance of cessation.
Obesity:
-Weight loss and regular exercise recommended
Physical Exam
Vital Signs/Labs
Vital Signs
Temp Pulse Resp BP Pulse Ox
99.2 F 89 16 161/95 96
05/01/24 07:36 05/01/24 07:36 05/01/24 07:36 05/01/24 07:36 05/01/24 07:36
05/01/24 03:04
APTT 75.5 Sec (23.4-35.0) H 05/01/24 03:04
Magnesium 1.9 mg/dl (1.6-2.3) 04/30/24 05:56
Triglycerides 70 mg/dl (10-149) 05/01/24 03:04
LDL Cholesterol, Calc 63 mg/dl 05/01/24 03:04
VLDL Cholesterol, Calc 14 mg/dl (0-30) 05/01/24 03:04
HDL Cholesterol 80 mg/dl 05/01/24 03:04
TSH 0.34 uIU/ml (0.47-4.68) L 04/29/24 04:11
Free T4 Cancelled 04/30/24 09:13
LAB Results
04/28/24 04/29/24 04/29/24
19:21 04:11 11:24
Troponin I < 0.012 < 0.012 < 0.012
Physical Exam
Constitutional: No acute distress and Comfortable
EENT: Anicteric
Cardiovascular: Pedal edema is absent, Rhythm/rate is irregular, Systolic murmur present (2/6) and S1S2 is normal
Respiratory: Respiratory effort normal and Rhonchi Present
GI: Soft
Neuro/Psych: AO x 3
Other: Skin (Warm, dry, intact)
Data Reviewed
-
Date of Service: May 01, 2024
EKG: Tracing Personally Visualized and interpreted (Telemetry: Sinus rhythm/paroxysmal A-fib with RVR)
Echo: Report Reviewed by me (EF 65-70%; aortic sclerosis without stenosis)
Labs: Labs Reviewed by me
--- NOTE | 2024-05-01 08:35 | W.PN.HOSP.TC ---
Today's Communication/Plan
-
Repeat BMP
Continue unasyn
Start IV steroids and antifungals
Cotninue Hep gtt until able to tolerate PO DOAC
Follow up ENT and Neph rec
Assessment / Plan
Assessment / Plan
NAD, resting comfortably in bed
Scleral anicteric
Moist mucous membranes
No JVD, no thyromegaly, no enlarged mandibular node
CTA bilateral
Normal S1-S2 no murmurs
Soft nontender nondistended bowel sounds active
No peripheral pitting edema
Moves extremities spontaneously
AAOx3
New onset atrial fibrillation with RVR . 2D echocardiogram pending. Continue Cardizem IV once able to to tolerate p.o. intake can transition to IV, continue heparin drip, heparin protocol, every 6 PTT. Transition to po doac once able to do so
-Cardiology recommending outpatient ischemic workup
Hyponatremia improving in part likely related to poor p.o. intake. Expect to continue to improve on fluids
Metabolic acidosis s/p Bicarb per Neph. Awaiting AM BMP
Acute Epiglottits evaled by ENT rec unasyn. Have started dex for 24hours and diflucan for 5days.
-Repeat swallow eval
Hypokalemia replete as needed
-difficult to get po kcl in her due to swallowing issue and burning sensation she get from it
-kcl iv will be placed, will take time for her to get this though
-monitor on tele
Advance diet as tolerated
Anticipated Discharge: 24 - 48 hours
Subjective/Interval History
-
Date of Service: May 01, 2024
still unable to swallow
remains on hep gtt
understand why she was started on antibiotics, steroids and antifungals
understands that it will take time to improve but is expectedly frustrated
Objective Data
-
Labs:
Laboratory Results
04/30/24 05/01/24 05/01/24
20:51 03:04 08:26
WBC 6.9
Hgb 11.9 L
Hct 31.9 L
Plt Count 242
APTT 76.3 H 75.5 H
Sodium Pending
Potassium Pending
Chloride Pending
Carbon Dioxide Pending
BUN Pending
Creatinine Pending
Glucose Pending
Calcium Pending
Vital Signs:
Vital Signs
Temp Pulse Resp BP Pulse Ox
99.2 F 89 16 161/95 96
05/01/24 07:36 05/01/24 07:36 05/01/24 07:36 05/01/24 07:36 05/01/24 07:36
I&O
04/30/24 05/01/24 05/02/24
06:59 06:59 06:59
Intake Total 1080 / 1080 1560 / 1560
Balance 1080 / 1080 1560 / 1560
[2024-05-01 09:07] LABS: Glycohemoglobin (HgbA1c) 4.8 % (4.0-5.6)
[2024-05-01 09:32] LABS: Blood Urea Nitrogen 6 mg/dl (7-17); Carbon Dioxide 22 mmol/L (22-30); Chloride 95 mmol/L (98-107); Estimated Creatinine Clearance 83 ml/min; Glucose 105 mg/dl (70-99); Potassium 3.1 mmol/L (3.5-5.1); Sodium 127 mmol/L (135-145); eGFR > 60.00
[2024-05-01] MEDS: CARDIZEM CD PO (09:36)
[2024-05-01] MEDS: CARDIZEM 125 IV ×2 (09:36→20:39)
[2024-05-01] MEDS: FIRST-MOUTHWASH BLM SUSPENSION 5 ML PO (09:37)
[2024-05-01] MEDS: DECADRON 4 MG IV ×2 (09:37→17:22)
[2024-05-01] MEDS: KCL ELIXIR 40 MEQ PO ×2 (09:37→09:59)
[2024-05-01] MEDS: NEURONTIN 300 MG PO ×3 (09:38→20:53)
[2024-05-01] MEDS: COZAAR 100 MG PO (09:38)
[2024-05-01] MEDS: CARDIZEM 10 MG IV (09:38)
[2024-05-01] MEDS: DIFLUCAN 200 MG 25 MG IV (09:41)
--- NOTE | 2024-05-01 10:34 | W.PN.NEPH.PH ---
Today's Communication / Plan
-
-hold HTS
Assessment/Plan
-
Assessment
Hyponatremia
Metabolic acidosis
Difficulty swallowing decreased oral intake
Hypertension
Hyperlipidemia
A-fib rapid ventricular rate
Hypomagnesemia
Plan
s/p HTS with Na improving from 122 --> 128. of note, the patient does have some baseline hyponatremia, sodium today at 127
still unable to tolerate PO
K repletion is ongoing which will further correct Na
Will give IV sodium bicarb as well to correct NAGMA, likely will need oral bicarb once she is able to take better PO
no need for IV lasix currently
Serial BMP
-
-
Date of Service: May 01, 2024
CC / HPI / ROS
-
Chief Complaint:
hyponatremia
History of Present Illness:
Na 122 --> 127 with HTS on 04/29
still unable to tolerate PO
Review of Systems:
feeling very fatigued and frustrated
minimal PO intake
Labs
-
Labs:
WBC 6.9 10^3/uL (4.8-10.8) 05/01/24 03:04
RBC 3.36 10^6/uL (4.20-5.40) L 05/01/24 03:04
Hgb 11.9 g/dL (12.0-16.0) L 05/01/24 03:04
Hct 31.9 % (37.0-47.0) L 05/01/24 03:04
Plt Count 242 10^3/uL (130-400) 05/01/24 03:04
Sodium 127 mmol/L (135-145) L 05/01/24 08:36
Potassium 3.1 mmol/L (3.5-5.1) L 05/01/24 08:36
Chloride 95 mmol/L (98-107) L 05/01/24 08:36
Carbon Dioxide 22 mmol/L (22-30) 05/01/24 08:36
BUN 6 mg/dl (7-17) L 05/01/24 08:36
Creatinine 0.4 mg/dL (0.6-1.0) L 05/01/24 08:36
eGFR > 60.00 05/01/24 08:36
Glucose 105 mg/dl (70-99) H 05/01/24 08:36
Calcium 9.0 mg/dl (8.4-10.2) 05/01/24 08:36
Albumin 3.7 g/dl (3.5-5.0) 04/30/24 05:56
Physical Exam
-
Vital Signs:
Vital Signs
Temp Pulse Resp BP Pulse Ox
99.2 F 89 16 161/95 96
05/01/24 07:36 05/01/24 07:36 05/01/24 07:36 05/01/24 07:36 05/01/24 07:36
Cardiovascular:: Regular rate and rhythm
Respiratory:: Bilateral: Coarse
Lung Excursion:: Normal
Abdomen:: Nontender and Soft
Bowel Sounds:: Normal
Extremity Edema:: None: Bilateral:
[place] Catheter: No
[2024-05-01] MEDS: KCL 270 MEQ IV ×2 (13:06→17:24)
--- NOTE | 2024-05-01 16:09 | PTCARENOTE ---
pt placed on cardizem gtt 5ml/hr in AM. Pt HR sustained in 140's, cardiology made aware via TT, cardizem gtt increased to 10ml/hr. Pt hr sustained in 140's and as high as 180's. Resource Specialist Teacher and hospitalist made aware via TT. Cardizem gtt increased
to 15ml/hr. Per hospitalist, will be transferred to higher level of care. Pt remains asymptomatic other than reports of feeling heart 'racing'. Will continue to monitor.
--- NOTE | 2024-05-01 16:45 | W.PN.ENT ---
Today's Communication
-
as above
Impression / Plan
-
Acute epiglotitis is greatly improved.
If still swallowing well tomorrow she may be discharged from our point of view.
Would discharge tomorrow on about 7 days of Augmentin and 3 additional days of diflcan.
Subjective Data
-
Pt is swallowing much better
Objective Data
-
Vital Signs
Temp Pulse Resp BP Pulse Ox
99.1 F 168 16 151/99 96
05/01/24 15:24 05/01/24 15:24 05/01/24 15:24 05/01/24 15:24 05/01/24 15:24
Intake & Output
04/30/24 05/01/24 05/02/24
06:59 06:59 06:59
Intake:
Oral fluids 1080 / 1080 1320 / 1320
IV piggybacks 240 / 240
Other:
Number of approximated SMALL 1
amounts of urine
Number of approximated MODERATE 1 1
amounts of urine
Lab Results
05/01/24 03:04
05/01/24 08:36
APTT 75.5 Sec (23.4-35.0) H 05/01/24 03:04
Calcium 9.0 mg/dl (8.4-10.2) 05/01/24 08:36
Magnesium 1.9 mg/dl (1.6-2.3) 04/30/24 05:56
Total Bilirubin 0.6 mg/dl (0.2-1.3) 04/30/24 05:56
AST 27 U/L (14-36) 04/30/24 05:56
ALT 19 U/L (0-35) 04/30/24 05:56
Alkaline Phosphatase 75 U/L (38-126) 04/30/24 05:56
Triglycerides 70 mg/dl (10-149) 05/01/24 03:04
LDL Cholesterol, Calc 63 mg/dl 05/01/24 03:04
VLDL Cholesterol, Calc 14 mg/dl (0-30) 05/01/24 03:04
HDL Cholesterol 80 mg/dl 05/01/24 03:04
TSH 0.34 uIU/ml (0.47-4.68) L 04/29/24 04:11
Free T4 Cancelled 04/30/24 09:13
Physical Exam
-
No oral pharyngeal swelling
Normal speaking voice
--- NOTE | 2024-05-01 18:39 | PTCARENOTE ---
[facility] [facility], A,A+O, skin w+D, offers no complaints. HR 80's in SR. Lungs decreased at bilat bases, occasional prod cough. Pt reports white sputum. No edema noted. Pt has her dinner, she said she takes her time due to swallowing
discomfort.
--- NOTE | 2024-05-01 22:08 | PTCARENOTE ---
Patient received at changed of shift in chair, walking in halls. SR on telemetry. Cardizem and Heparin infusing. Tolerating dinner, able to swallow pills whole with water. Call trevino in reach
[2024-05-02] MEDS: UNASYN IV ×4 (02:30→19:40)
[2024-05-02] MEDS: DECADRON 4 MG IV ×3 (02:30→17:15)
[2024-05-02 03:42] VITALS: BP 132/80
[2024-05-02 04:23] LABS: Blood Urea Nitrogen 9 mg/dl (7-17); Carbon Dioxide 27 mmol/L (22-30); Chloride 92 mmol/L (98-107); Estimated Creatinine Clearance 83 ml/min; Glucose 122 mg/dl (70-99); Potassium 3.8 mmol/L (3.5-5.1); Sodium 127 mmol/L (135-145); eGFR > 60.00
[2024-05-02 04:28] LABS: APTT 109.6 Sec (23.4-35.0)
[2024-05-02] MEDS: CARDIZEM 125 IV (06:00)
[2024-05-02 06:46] VITALS: BP 136/74
--- NOTE | 2024-05-02 09:21 | W.PN.NEPH.PH ---
Today's Communication / Plan
-
follow BMP
Assessment/Plan
-
Assessment
Hyponatremia
Metabolic acidosis
Difficulty swallowing decreased oral intake
Hypertension
Hyperlipidemia
A-fib rapid ventricular rate
Hypomagnesemia
Plan
follow BMP
no diuretics
hopefully Na will improve as po intake improves
-
-
Date of Service: May 02, 2024
CC / HPI / ROS
-
Chief Complaint:
hyponatremia
History of Present Illness:
Na 127 stable
ate breakfast today
Review of Systems:
no CP/SOB
Labs
-
Labs:
WBC 6.9 10^3/uL (4.8-10.8) 05/01/24 03:04
RBC 3.36 10^6/uL (4.20-5.40) L 05/01/24 03:04
Hgb 11.9 g/dL (12.0-16.0) L 05/01/24 03:04
Hct 31.9 % (37.0-47.0) L 05/01/24 03:04
Plt Count 242 10^3/uL (130-400) 05/01/24 03:04
Sodium 127 mmol/L (135-145) L 05/02/24 03:54
Potassium 3.8 mmol/L (3.5-5.1) 05/02/24 03:54
Chloride 92 mmol/L (98-107) L 05/02/24 03:54
Carbon Dioxide 27 mmol/L (22-30) 05/02/24 03:54
BUN 9 mg/dl (7-17) 05/02/24 03:54
Creatinine 0.4 mg/dL (0.6-1.0) L 05/02/24 03:54
eGFR > 60.00 05/02/24 03:54
Glucose 122 mg/dl (70-99) H 05/02/24 03:54
Calcium 8.0 mg/dl (8.4-10.2) L 05/02/24 03:54
Albumin 3.7 g/dl (3.5-5.0) 04/30/24 05:56
Physical Exam
-
Vital Signs:
Vital Signs
Temp Pulse Resp BP Pulse Ox
98.7 F 80 18 136/74 96
05/02/24 06:41 05/02/24 07:30 05/02/24 06:41 05/02/24 06:46 05/02/24 06:41
Cardiovascular:: Regular rate and rhythm
Respiratory:: Bilateral: CTA
Lung Excursion:: Normal
Abdomen:: Nontender and Soft
Bowel Sounds:: Normal
Extremity Edema:: None: Bilateral:
--- NOTE | 2024-05-02 09:31 | W.PN.HOSP.TC ---
Today's Communication/Plan
-
advance diet as tolerated
transition from iv dilt to po dilt if able to tolerate po intake
continue atbs' steroids diflucan
Assessment / Plan
Assessment / Plan
NAD, resting comfortably in bed
Scleral anicteric
Moist mucous membranes
No JVD, no thyromegaly, no enlarged mandibular node
CTA bilateral
Normal S1-S2 no murmurs
Soft nontender nondistended bowel sounds active
No peripheral pitting edema
Moves extremities spontaneously
AAOx3
New onset atrial fibrillation with RVR .
�As she is able to tolerate p.o. intake convert IV Cardizem to p.o. Cardizem per cardiology recommendations
� Transition heparin drip to Eliquis 5 mg twice daily
Hyponatremia improving in part likely related to poor p.o. intake. Expect to continue to improve on fluids
Metabolic acidosis s/p Bicarb per Neph. Awaiting AM BMP
Acute Epiglottits evaled by ENT rec unasyn. Have started dex for 24hours and diflucan for 5days.
-Repeat swallow eval
Hypokalemia replete as needed
-difficult to get po kcl in her due to swallowing issue and burning sensation she get from it
-kcl iv will be placed, will take time for her to get this though
-monitor on tele
Advance diet as tolerated
If continues to be able to tolerate diet well throat soreness remains well then can likely be able to discharge in the next 24 hours on home antibiotics/antifungals/Medrol Dosepak and p.o. Cardizem anticoagulation.
Downgrade to telemetry
Anticipated Discharge: Within 24 hours
Subjective/Interval History
-
Date of Service: May 02, 2024
Seen and examined. Able to swallow this morning. Without pain.
Want to be able to take a shower
Objective Data
-
Labs:
Laboratory Results
05/02/24
03:54
APTT 109.6 H
Sodium 127 L
Potassium 3.8
Chloride 92 L
Carbon Dioxide 27
BUN 9
Creatinine 0.4 L
Glucose 122 H
Calcium 8.0 L
Vital Signs:
Vital Signs
Temp Pulse Resp BP Pulse Ox
98.7 F 80 18 136/74 96
05/02/24 06:41 05/02/24 07:30 05/02/24 06:41 05/02/24 06:46 05/02/24 06:41
I&O
05/01/24 05/02/24 05/03/24
06:59 06:59 06:59
Intake Total 1560 / 1560 1889
Balance 1560 / 1560 1889
[2024-05-02] MEDS: COZAAR 100 MG PO (09:33)
[2024-05-02] MEDS: NEURONTIN 300 MG PO ×3 (09:34→21:54)
[2024-05-02] MEDS: KCL ELIXIR 40 MEQ PO (09:34)
[2024-05-02] MEDS: FLUSH (NSS) 3 FLUSH IV (09:37)
--- NOTE | 2024-05-02 10:25 | PTCARENOTE ---
Received patient this morning oob in the chair. Able to eat breakfast, throat feeling a little better. Remains in SR, IV heparin and IV cardizem infusing as ordered.
--- NOTE | 2024-05-02 11:23 | W.PN.CD ---
Addendum entered and electronically signed by Darryn Block MD 05/02/24 14:31:
68 yo female. Consult for new A fib. Back in sinus. No cardiac complaints. Exam with RRR, no murmurs,no edema. Cr 0.4. Tele: SR 70s.
Transition heparin drip to eliquis 5mg bid.
Transition IV diltiazem to PO.
Trend tele.
Addendum entered and electronically signed by LUCÍA Anne 05/02/24 11:32:
Discussed below plan with RN as well.
Original Note:
Today's Communication / Plan
-
Transition to PO diltiazem and follow tele and BP's
Transition from heparin to Eliquis tonight. Consult CM to ensure affordability.
Impression / Plan
-
68-year-old female with hypertension, hyperlipidemia, obesity, and chronic continued cigarette use (typically one half PPD since age of 16) admitted with throat pain. Patient presented with hypertensive crisis (blood pressure 189/116 mmHg) and was
found to be in atrial fibrillation with RVR (new onset). Patient was also found to have significant electrolyte abnormalities (hyponatremia low bicarbonate) and low TSH (free T4 okay). Cardiology was consulted for atrial fibrillation.
New onset paroxysmal atrial fibrillation with RVR:
-now back in SR
-Patient was unable to swallow pills due to epiglottitis (ENT following), but now swallowing fine without difficulty. Therefore, will transition back to PO diltiazem 180 mg daily (ER).
-Echocardiogram this admit revealed an LVEF of 65-70% and aortic sclerosis without stenosis.
-Will transition to Eliquis from heparin drip tonight- CM consulted for pricing. She is swallowing fine and no plans for procedures in my discussed with Dr. Stephens.
-Continue shelter monitor.
-Eventual outpatient stress test for ischemic evaluation.
Electrolyte abnormalities:
-Patient with significant hyponatremia 122, bicarbonate at 17; improving.
-In a chronic smoker, malignancy should be included in differential diagnosis.
-Nephrology following/managing.
-TSH is low, but free T4 is normal.
Hypertensive crisis:
-improved
-monitor on diltiazem
Systolic heart murmur:
-Aortic sclerosis without stenosis.
Hyperlipidemia:
-Continue statin.
Cigarette smoker:
-Counseled on the importance of cessation.
Obesity:
-Weight loss and regular exercise recommended
Patient is feeling quite well. Discussed cardiac plan with patient and Dr. Stephens.
Physical Exam
Vital Signs/Labs
Vital Signs
Temp Pulse Resp BP Pulse Ox
98.7 F 80 18 136/74 96
05/02/24 06:41 05/02/24 07:30 05/02/24 06:41 05/02/24 06:46 05/02/24 06:41
05/01/24 03:04
05/02/24 03:54
APTT 109.6 Sec (23.4-35.0) H 05/02/24 03:54
Magnesium 1.9 mg/dl (1.6-2.3) 04/30/24 05:56
Triglycerides 70 mg/dl (10-149) 05/01/24 03:04
LDL Cholesterol, Calc 63 mg/dl 05/01/24 03:04
VLDL Cholesterol, Calc 14 mg/dl (0-30) 05/01/24 03:04
HDL Cholesterol 80 mg/dl 05/01/24 03:04
TSH 0.34 uIU/ml (0.47-4.68) L 04/29/24 04:11
Free T4 Cancelled 04/30/24 09:13
LAB Results
04/29/24
11:24
Troponin I < 0.012
Physical Exam
Constitutional: No acute distress
EENT: Anicteric
Cardiovascular: Rhythm & rate is regular
Respiratory: Respiratory effort normal and Lungs clear to auscul.
Neuro/Psych: AO x 3
Data Reviewed
-
Date of Service: May 02, 2024
EKG: Other (tele SR)
--- NOTE | 2024-05-02 11:58 | CM ---
Addendum entered by Mónica Rivera 05/02/24 12:34:
Reviewed co-pay with her. She would like to use the mail order for her Eliquis. She can use the one month free coupon at [facility] for her first script.
Original Note:
Reviewed chat. Ms Ricardo was transferred to IVU. Met with Ms. Ricardo to review discharge plans. She states prior to admission she resides alone in a tiny house with a ramp to enter. She states prior to admission she was independent with ADL's.
She states she uses single point cane in the a.m. when she first gets out of bed and the she is independent. She states she has a single point cane in the home. She states she has a prescription plan and uses [facility]. Telephone call to Adrian "Kasi"Lance ([phone]) to check on coverage for Eliquis 5 mg po bid. Her co-pay would be $4.60 a month or $4.60 for 90 day supply. Placed the one month free coupon in her red discharge folder. Medical work-up in progress. The discharge plan is to
return home when medically stable.
[2024-05-02 11:59] VITALS: BP 131/75
[2024-05-02] MEDS: DIFLUCAN 200 MG 25 MG IV (12:00)
[2024-05-02] MEDS: CARDIZEM CD 180 MG PO (12:00)
--- NOTE | 2024-05-02 13:31 | PTCARENOTE ---
Patient seen by the hospitalist and cardiology. Patient eating better and is able to swallow pills without difficulty. IV cardizem discontinued and patient given dose PO. IV heparin to infuse untill 1999 when she will receive first dose of eliquis.
Patient permitted to shower.
[2024-05-02] MEDS: HEPARIN 25000 UNITS/250 ML IV (15:07)
[2024-05-02 15:42] VITALS: BP 119/80
[2024-05-02] MEDS: ELIQUIS 5 MG PO (19:40)
[2024-05-02 19:41] VITALS: BP 131/85
[2024-05-02] MEDS: ANESTHETIC LOZENGE 1 LOZENGE PO (21:54)
[2024-05-02 22:51] VITALS: BP 139/94
[2024-05-03] MEDS: UNASYN IV ×2 (03:05→08:54)
[2024-05-03] MEDS: DECADRON 4 MG IV ×2 (03:05→09:54)
[2024-05-03 03:39] VITALS: BP 137/72
[2024-05-03 04:07] LABS: Hematocrit 29.6 % (37.0-47.0); Mean Corp Hgb Conc. 37.2 g/dL (33.0-37.0); Mean Corpuscular Hgb 34.1 pg (27.0-31.0); Mean Corpuscular Volume 91.6 fL (81.0-99.0); Mean Platelet Volume 9.1 fL (7.4-10.4); Platelet Count 245 10^3/uL (130-400); Red Blood Cell Count 3.23 10^6/uL (4.20-5.40); Red Cell Dist. Width 13.2 % (11.5-14.5); White Blood Cell Count 8.2 10^3/uL (4.8-10.8)
[2024-05-03 04:27] LABS: Blood Urea Nitrogen 16 mg/dl (7-17); Calcium 9.2 mg/dl (8.4-10.2); Carbon Dioxide 21 mmol/L (22-30); Chloride 98 mmol/L (98-107); Estimated Creatinine Clearance 83 ml/min; Glucose 137 mg/dl (70-99); Potassium 4.1 mmol/L (3.5-5.1); Sodium 128 mmol/L (135-145); eGFR > 60.00
--- NOTE | 2024-05-03 05:01 | PTCARENOTE ---
Patient states she is feeling so much better. Walking in room and dalal earlier in the shift. Able to tolerate PO food and pills orally, SR on telemetry.
[2024-05-03 07:40] VITALS: BP 139/77
--- NOTE | 2024-05-03 08:16 | W.PN.CD ---
Today's Communication / Plan
-
-Continue Cardizem CD 180 mg daily.
-Continue Eliquis 5 mg BID.
-Outpatient stress test for ischemic evaluation.
-Recommend discharging to home on KCL 20 mEq daily.
-Resume simvastatin 10 mg daily at home on discharge.
-No further cardiac recommendations at this time; outpatient follow-up with Cardiology.
Impression / Plan
-
68-year-old female with hypertension, hyperlipidemia, obesity, and chronic continued cigarette use (typically one half PPD since age of 16) admitted with throat pain. Patient presented with hypertensive crisis (blood pressure 189/116 mmHg) and was
found to be in atrial fibrillation with RVR (new onset). Patient was also found to have significant electrolyte abnormalities (hyponatremia low bicarbonate) and low TSH (free T4 okay). Cardiology was consulted for atrial fibrillation.
New onset paroxysmal atrial fibrillation with RVR:
-now back in SR
-Patient was unable to swallow pills due to epiglottitis (ENT following), but now swallowing fine without difficulty.
-Continue Cardizem CD 180 mg daily.
-Continue Eliquis 5 mg BID.
-Echocardiogram this admit revealed an LVEF of 65-70% and aortic sclerosis without stenosis.
-Outpatient stress test for ischemic evaluation.
Electrolyte abnormalities:
-Patient with significant hyponatremia 122, bicarbonate at 17; improving.
-In a chronic smoker, malignancy should be included in differential diagnosis.
-Nephrology following/managing.
-TSH is low, but free T4 is normal.
-Recommend discharging to home on KCL 20 mEq daily.
Hypertensive crisis:
-Blood pressure controlled on Cardizem CD 180 mg daily and losartan 100 mg daily.
Systolic heart murmur:
-Aortic sclerosis without stenosis.
Hyperlipidemia:
-Resume simvastatin 10 mg daily at home on discharge.
Cigarette smoker:
-Counseled on the importance of cessation.
Obesity:
-Weight loss and regular exercise recommended
Physical Exam
Vital Signs/Labs
Vital Signs
Temp Pulse Resp BP Pulse Ox
98.0 F 71 18 139/77 97
05/03/24 07:38 05/03/24 07:40 05/03/24 07:38 05/03/24 07:40 05/03/24 07:38
05/03/24 03:53
05/03/24 03:53
APTT Cancelled 05/03/24 06:00
Magnesium 1.9 mg/dl (1.6-2.3) 04/30/24 05:56
Triglycerides 70 mg/dl (10-149) 05/01/24 03:04
LDL Cholesterol, Calc 63 mg/dl 05/01/24 03:04
VLDL Cholesterol, Calc 14 mg/dl (0-30) 05/01/24 03:04
HDL Cholesterol 80 mg/dl 05/01/24 03:04
TSH 0.34 uIU/ml (0.47-4.68) L 04/29/24 04:11
Free T4 Cancelled 04/30/24 09:13
Physical Exam
Constitutional: No acute distress and Comfortable
EENT: Anicteric
Cardiovascular: Rhythm & rate is regular, Pedal edema is absent, Systolic murmur present (2/6) and S1S2 is normal
Respiratory: Respiratory effort normal and Lungs clear to auscul.
GI: Soft
Neuro/Psych: AO x 3
Other: Skin (Warm, dry, intact)
Data Reviewed
-
Date of Service: May 03, 2024
EKG: Tracing Personally Visualized and interpreted (Telemetry: Sinus rhythm)
Medical Tests (PFT, Pathology etc): Discussed with Patient
Labs: Labs Reviewed by me
[2024-05-03] MEDS: COZAAR 100 MG PO (08:53)
[2024-05-03] MEDS: CARDIZEM CD 180 MG PO (08:53)
[2024-05-03] MEDS: NEURONTIN 300 MG PO (08:54)
[2024-05-03] MEDS: ELIQUIS 5 MG PO (08:54)
[2024-05-03] MEDS: KCL ELIXIR 20 MEQ PO (08:55)
[2024-05-03] MEDS: KCL ELIXIR PO (08:55)
[2024-05-03] MEDS: FLUSH (NSS) 2 FLUSH IV (08:55)
[2024-05-03] MEDS: DIFLUCAN 200 MG 25 MG IV (09:51)
--- NOTE | 2024-05-03 10:33 | PTCARENOTE ---
Received patient this morning sitting oob in the chair. Remains in SR, tolerated breakfast and was able to swallow her pills. Having difficulty with KCL elixir mixed in apple juice and is not willing to take it if she is discharged on this
medication, instructed to let the hospitalist know. Patient is anxious to go home.
--- NOTE | 2024-05-03 10:41 | W.PN.NEPH.PH ---
Today's Communication / Plan
-
dc planning
Assessment/Plan
-
Assessment
Hyponatremia
Metabolic acidosis
Difficulty swallowing decreased oral intake
Hypertension
Hyperlipidemia
A-fib rapid ventricular rate
Hypomagnesemia
Plan
follow BMP next week
no diuretics
without diuretics, she should not need supplemental KCl
dc planning
-
-
Date of Service: May 03, 2024
CC / HPI / ROS
-
Chief Complaint:
hyponatremia
History of Present Illness:
Na 128 better
eating fine
BP stable
in Sinus rhythm
Review of Systems:
no CP/SOB
Labs
-
Labs:
WBC 8.2 10^3/uL (4.8-10.8) 05/03/24 03:53
RBC 3.23 10^6/uL (4.20-5.40) L 05/03/24 03:53
Hgb 11.0 g/dL (12.0-16.0) L 05/03/24 03:53
Hct 29.6 % (37.0-47.0) L 05/03/24 03:53
Plt Count 245 10^3/uL (130-400) 05/03/24 03:53
Sodium 128 mmol/L (135-145) L 05/03/24 03:53
Potassium 4.1 mmol/L (3.5-5.1) 05/03/24 03:53
Chloride 98 mmol/L (98-107) 05/03/24 03:53
Carbon Dioxide 21 mmol/L (22-30) L 05/03/24 03:53
BUN 16 mg/dl (7-17) 05/03/24 03:53
Creatinine 0.5 mg/dL (0.6-1.0) L 05/03/24 03:53
eGFR > 60.00 05/03/24 03:53
Glucose 137 mg/dl (70-99) H 05/03/24 03:53
Calcium 9.2 mg/dl (8.4-10.2) 05/03/24 03:53
Albumin 3.7 g/dl (3.5-5.0) 04/30/24 05:56
Physical Exam
-
Vital Signs:
Vital Signs
Temp Pulse Resp BP Pulse Ox
98.0 F 76 18 139/77 97
05/03/24 07:38 05/03/24 08:53 05/03/24 07:38 05/03/24 08:53 05/03/24 07:38
Cardiovascular:: Regular rate and rhythm
Respiratory:: Bilateral: CTA
Lung Excursion:: Normal
Abdomen:: Nontender and Soft
Bowel Sounds:: Normal
Extremity Edema:: None: Bilateral:
[2024-05-03 10:58] VITALS: BP 142/80
--- NOTE | 2024-05-03 11:02 | W.PN.HOSP.TC ---
Today's Communication/Plan
-
DC home
Assessment / Plan
Assessment / Plan
NAD, resting comfortably in bed
Scleral anicteric
Moist mucous membranes
No JVD, no thyromegaly, no enlarged mandibular node
CTA bilateral
Normal S1-S2 no murmurs
Soft nontender nondistended bowel sounds active
No peripheral pitting edema
Moves extremities spontaneously
AAOx3
New onset atrial fibrillation with RVR .
�As she is able to tolerate p.o. intake convert IV Cardizem to p.o. Cardizem per cardiology recommendations
� Transition heparin drip to Eliquis 5 mg twice daily
Hyponatremia improving in part likely related to poor p.o. intake. Expect to continue to improve on fluids
Metabolic acidosis s/p Bicarb per Neph. Awaiting AM BMP
Acute Epiglottits evaled by ENT rec unasyn. Have started dex for 24hours and diflucan for 5days.
-Repeat swallow eval
Hypokalemia replete as needed
-difficult to get po kcl in her due to swallowing issue and burning sensation she get from it
-kcl iv will be placed, will take time for her to get this though
-monitor on tele
Advance diet as tolerated
If continues to be able to tolerate diet well throat soreness remains well then can likely be able to discharge in the next 24 hours on home antibiotics/antifungals/Medrol Dosepak and p.o. Cardizem anticoagulation.
DC home
Meds sents to [facility]
Anticipated Discharge: Today
Subjective/Interval History
-
Date of Service: May 03, 2024
seen and exmained. no new complaitns. no acute overnight events
feeling better
wants to go home
states she saw all consulted and they have given her the green light for discharge
would like to take a shower
Objective Data
-
Labs:
Laboratory Results
05/03/24 05/03/24
03:53 06:00
WBC 8.2
Hgb 11.0 L
Hct 29.6 L
Plt Count 245
APTT Cancelled
Sodium 128 L
Potassium 4.1
Chloride 98
Carbon Dioxide 21 L
BUN 16
Creatinine 0.5 L
Glucose 137 H
Calcium 9.2
Vital Signs:
Vital Signs
Temp Pulse Resp BP Pulse Ox
98.6 F 76 18 139/77 98
05/03/24 10:55 05/03/24 08:53 05/03/24 10:55 05/03/24 08:53 05/03/24 10:55
I&O
05/02/24 05/03/24 05/04/24
06:59 06:59 06:59
Intake Total 1889 445 / 445
Balance 1889 445 / 445
--- NOTE | 2024-05-03 11:04 | W.DCSUMMARY ---
Discharge Summary
Discharge Data
Date of Admission: 04/28/24
Date of Discharge: 05/03/24
-
Pending Results: No
Hospital Course
68 F with pmhx htn and spinal stenosis of Presented with sore throat and decreased oral intake. Found to have abnormal electrolytes with low sodium and potassium. Seen by nephrology. Potassium was corrected however, sodium remained low. On the day
of discharge it was 128 and did not have symptomas of low sodium. Was followed by Nephrology. Hospital course was complicated by atrial fibrillation with RVR requiring diltiazem drip that was eventually transitioned to by mouth diltiazem and started
on a blood thinner per cardiology recommendation. They have also recommended an outpatient stress test. Ultrasound of the heart demonstrated LVEF of 65-70% and aortic sclerosis without stenosis.
In terms of the sore throat which continued to get worse, unable to swallow liquids and solids due to difficulty and pain. Therefore, ENT evaluated, believed that this was related to acute epiglottis with a component of thrush. Started on
antibiotics with unasyn, antifungals with diflucan and steroids with a continued improvement. Will need to complete antibiotics and antifungals on dischagre.
Will need to see Cardiology and ENT along with PCP as an outpatient.
Discharge Plan
-
Patient Disposition: Home (Routine Discharge)
Discharge Diagnosis/Procedures: Atrial fibrillation
Acute epiglottis
Condition: Good
Diet: As tolerated
Activity: As tolerated
Driving Restrictions: As prior to admission
Bathing Restrictions: None
Activity Restrictions/Additional Instructions:
Presented with sore throat and decreased oral intake. Found to have abnormal electrolytes with low sodium and potassium. Seen by nephrology. Potassium was corrected however, sodium remained low. On the day of discharge it was 128 and did not have
symptomas of low sodium. Was followed by Nephrology. Hospital course was complicated by atrial fibrillation with RVR requiring diltiazem drip that was eventually transitioned to by mouth diltiazem and started on a blood thinner per cardiology
recommendation. They have also recommended an outpatient stress test. Ultrasound of the heart demonstrated LVEF of 65-70% and aortic sclerosis without stenosis.
In terms of the sore throat which continued to get worse, unable to swallow liquids and solids due to difficulty and pain. Therefore, ENT evaluated, believed that this was related to acute epiglottis with a component of thrush. Started on
antibiotics with unasyn, antifungals with diflucan and steroids with a continued improvement. Will need to complete antibiotics and antifungals on dischagre.
Will need to see Cardiology and ENT along with PCP as an outpatient.
stop smoking
Instructions: Atrial Fibrillation (DC), Quitting smoking, Epiglottitis (DC)
Referrals:
Sonya Perales CRNP [Specified Professional Personl] - 05/23/24 1:00 pm
Maury Guzman MD [Active] -
Ksenia Roberts CRNP [Family Provider] -
Angella Plummer MD [Active] -
Prescriptions:
New
Chloraseptic Sore Throat 6-10 mg Lozenge
1 minerva PO Q4HPRN PRN (Reason: sore throat) Qty: 18 0RF
diltiazem HCl 180 mg Capsule,Extended Release 24hr
180 mg PO DAILY Qty: 30 0RF
losartan 100 mg Tablet
100 mg PO DAILY Qty: 30 0RF
Eliquis 5 mg Tablet
5 mg PO BID Qty: 60 0RF
amoxicillin-pot clavulanate [Augmentin] 500-125 mg tablet
1 tab PO BID 7 Days Qty: 14 0RF
fluconazole [Diflucan] 100 mg tablet
100 mg PO DAILY 3 Days Qty: 3 0RF
Continued
lidocaine 4 % Adhesive Patch,Medicated
1 patch TOPICAL DAILY PRN (Reason: pain)
simvastatin 10 mg Tablet
10 mg PO HS
gabapentin 300 mg Capsule
300 mg PO TID 30 Days Qty: 90 0RF
Discontinued
ibuprofen 800 mg Tablet
800 mg PO TID
amlodipine 2.5 mg Tablet
2.5 mg PO DAILY
ibuprofen 400 mg Tablet
400 mg PO Q8H
losartan 100 mg Tablet
100 mg PO DAILY
Discharge Orders:
Discharge Patient (As Directed); Ordered 05/03/24
Ordered By: Olayinka Stephens
Care Plan Goals
Care Plan Goals:
Problem: Readiness for enhanced knowledge related to diagnosis and treatment plan
Goal: Understand your diagnosis and treatment plan needs, including medications if applicable.
Instructions: Know your diagnosis, underlying causes and treatment plan options, including medications if applicable. Consult with your health care team to learn about your diagnosis and treatment plan, including medications if applicable.
Discharge Date and Time
Print Language: YEMENI
--- NOTE | 2024-05-03 12:34 | PTCARENOTE ---
Patient seen by Dr. Stephens and cardiology and is ok for discharge. Speech consult ordered but patient is ok to leave without consult since she is tolerating PO's well. Reviewed discharge instructions with the patient and life style modifications
recommended and she states her understanding. Patient discharged home with her friend.
== END 2024-05-03 13:41 | disposition home or self-care (01) | DRG 158 ==
LOC: IVU 23:45
PROVIDERS: Internal Medicine; Student in an Organized Health Care Education/Training Program; ADMITTING PHYSICIAN Internal Medicine; ATTENDING PHYSICIAN Hospitalist; CONSULT PHYSICIAN Internal Medicine; CONSULT PHYSICIAN Specialist; EMERGENCY PHYSICIAN Student in an Organized Health Care Education/Training Program; FAMILY PHYSICIAN Nurse Practitioner Family; OTHER PHYSICIAN Otolaryngology
PROC: 0CJS8ZZ Inspection of Larynx, Via Natural or Artificial Opening Endoscopic (ICD-10-PCS; 2024-04-30)
DX: B37.0 Candidal stomatitis (principal); E87.1 Hypo-osmolality and hyponatremia; J05.10 Acute epiglottitis without obstruction; E87.20 Acidosis, unspecified; E87.3 Alkalosis; I16.9 Hypertensive crisis, unspecified; I10 Essential (primary) hypertension; E66.9 Obesity, unspecified; Z68.31 Body mass index [BMI] 31.0-31.9, adult; I35.0 Nonrheumatic aortic (valve) stenosis; I70.0 Atherosclerosis of aorta; E86.0 Dehydration; E83.42 Hypomagnesemia; E87.6 Hypokalemia; I48.0 Paroxysmal atrial fibrillation; G89.29 Other chronic pain; M54.9 Dorsalgia, unspecified; M48.00 Spinal stenosis, site unspecified; E78.5 Hyperlipidemia, unspecified; F17.210 Nicotine dependence, cigarettes, uncomplicated; R01.1 Cardiac murmur, unspecified; Z96.653 Presence of artificial knee joint, bilateral; Z79.1 Long term (current) use of non-steroidal anti-inflammatories (NSAID); Z79.899 Other long term (current) drug therapy; Z11.52 Encounter for screening for COVID-19
CPT/HCPCS: 71046; 80048; 80053; 80061; 83036; 83735; 83935; 84300; 84439; 84443; 84484; 85025; 85027; 85730; 86308; 87070; 87811; 87880; 92610; 93005; 93306; 96361; 96365; 96366; 96375; 96376; 99291; 99406

== ENCOUNTER → 2024-06-26 11:20 | Outpatient (REF) | payer OTHER, SELFPAY | LOC: DHCBC/DCA 11:20 | PROVIDERS: ATTENDING PHYSICIAN Nurse Practitioner Gerontology; FAMILY PHYSICIAN Nurse Practitioner Family | DX: I48.0 Paroxysmal atrial fibrillation (principal) | CPT/HCPCS: 78452; 93017; A9500; J2785 ==

== ENCOUNTER 2024-09-11 13:23 | Emergency (ER) | payer OTHER, SELFPAY ==
[2024-09-11 13:31] VITALS: BP 213/118
[2024-09-11 13:59] LABS: % Eosinophils 0.5 % (0-6); % Immature Granulocytes 0.5 % (0-0.5); % Monocytes 8.7 % (1.7-9.3); % Neutrophils 70.3 % (42.2-75.2); Absolute Lymphocytes 1.2 10^3/uL (1.2-3.4); Absolute Monocytes 0.5 10^3/uL (0.1-0.6); Hematocrit 37.8 % (37.0-47.0); Hemoglobin 13.5 g/dL (12.0-16.0); Mean Corp Hgb Conc. 35.7 g/dL (33.0-37.0); Mean Corpuscular Hgb 34.1 pg (27.0-31.0); Mean Corpuscular Volume 95.5 fL (81.0-99.0); Mean Platelet Volume 9.3 fL (7.4-10.4); Nucleated Red Blood Cells % 0 %; Platelet Count 239 10^3/uL (130-400); Red Blood Cell Count 3.96 10^6/uL (4.20-5.40); Red Cell Dist. Width 13.1 % (11.5-14.5); White Blood Cell Count 5.8 10^3/uL (4.8-10.8)
[2024-09-11 14:15] LABS: ALT (SGPT) 23 U/L (0-35); AST (SGOT) 30 U/L (14-36); Alkaline Phosphatase 87 U/L (38-126); Blood Urea Nitrogen 10 mg/dl (7-17); Calcium 9.4 mg/dl (8.4-10.2); Carbon Dioxide 20 mmol/L (22-30); Chloride 94 mmol/L (98-107); Glucose 115 mg/dl (70-99); Potassium 4.8 mmol/L (3.5-5.1); Sodium 127 mmol/L (135-145); Total Bilirubin 0.9 mg/dl (0.2-1.3); Total Protein 7.5 g/dl (6.3-8.2); eGFR > 60.00
[2024-09-11 14:21] LABS: Troponin I < 0.012 ng/ml
--- NOTE | 2024-09-11 15:47 | ED.GENMED ---
History of Present Illness
General
Chief Complaint: Blood Pressure Problem
Source: patient
Exam Limitations: none
Time Seen by Provider: 09/11/24 15:35
History of Present Illness
History of Present Illness:
See MDM
Past History
Past History
ED Past Medical History: Arrthythmia and HTN
ED Past Surgical History: None
Social History
Tobacco: Non-smoker
Alcohol: Former
Drug: None
Personal: Single
Living: alone
Phy Exam
Physical Exam
Physical Exam:
See MDM
Course
Orders/Labs/Results
Orders:
Orders
09/11/24 13:35
Electrocardiogram (*1) Urgent
Reason for Study: Chest Pain
EKG- Treatment ONCE
09/11/24 13:39
Complete Blood Count/With Diff Urgent
Comprehensive Metabolic Panel Urgent
Troponin I Urgent
09/11/24 15:47
HydrALAZINE [Apresoline] 10 mg PO NOW STA
Abnormal Lab Results
09/11/24
13:39
RBC 3.96 L 10^6/uL
(4.20-5.40)
MCH 34.1 H pg
(27.0-31.0)
Lymphocytes % 20.0 L %
(20.5-51.1)
Sodium 127 L mmol/L
(135-145)
Chloride 94 L mmol/L
(98-107)
Carbon Dioxide 20 L mmol/L
(22-30)
Glucose 115 H mg/dl
(70-99)
09/11/24 13:39
09/11/24 13:39
Vital Signs
Initial and Last Documented VS:
Initial Vital Signs
Temp Pulse Resp BP Pulse Ox
98.5 F 98 18 213/118 98
09/11/24 13:31 09/11/24 13:31 09/11/24 13:31 09/11/24 13:31 09/11/24 13:31
Last Documented Vital Signs
Temp Pulse Resp BP Pulse Ox
98.5 F 98 18 213/118 98
09/11/24 13:31 09/11/24 13:31 09/11/24 13:31 09/11/24 13:31 09/11/24 13:31
MDM/Problems Addressed
Differential Diagnosis Includes:
HPI and MDM Narrative:
69-year-old female presenting for evaluation of elevated blood pressure. She took her blood pressure yesterday because she did not feel well. She has noted that her blood pressure was 200/100 and increasing despite taking her blood pressure
medications. He is unsure if this is related to recent stress or related to actively trying to quit smoking. Her newly prescribed Wellbutrin was recently increased. Patient states she had a mild headache yesterday and into today. She states she
is feeling somewhat better.
She does acknowledge that she probably would not have come to the emergency department unless her PCP urged her to. We discussed her chronically low sodium. Blood work was done in triage. She denies any chest pain or shortness of breath. Given
her mild headache and being on a blood thinner, I discussed obtaining a CT head but patient feels that this is unwarranted. She understands the risks of not obtaining CT
Patient also indicating that she believes that she can be discharged and was hoping to be discharged soon. I did offer starting hydralazine on an as-needed basis until her PCP or auctioneer art can readjust her medicine. Patient is very happy with
this plan. I did discuss that I usually monitor after starting a new medicine but patient states she feels comfortable in home feeling she needs to wait. Again, she understands the risk
Physical exam
General: Well appearing and non-toxic
HEENT: protecting airway. Pupils equal and reactive
Neck: appears supple
CV: No evidence of cyanosis. Regular rate and rhythm
Resp: No accessory muscle use
Abd: Non-distended
Extremities: No deformities
Neuro: alert
Psych: Normal affect
Skin: Intact
Problems Addressed including Acute and Chronic Conditions affecting care:
1. Hypertension urgency
Acuity: acute
Prognosis: unstable
Details: Blood work without evidence of endorgan damage. I did discuss obtaining a CT head for mild headache but patient declined. I also discussed monitoring while I start hydralazine. Patient also declined this as well.
Differential Diagnosis (but not limited to): Hypertension, intracranial hemorrhage
Testing considered: CT head
Drug therapy (if applicable): OTC meds, please see d/c instruction regarding Rx drugs
Amount and/or Complexity of Data Reviewed
Clinical info obtained from: Patient
External data reviewed: N/A
Labs I independently reviewed (but not limited to): Chronically low sodium, normal troponin
Radiology: N/A
Pulse Ox: not hypoxic
EKG independently reviewed: Sinus rhythm, normal axis, no STEMI
Control Systems Specialist: N/A
Critical Care: N/A
Risk of Complication:
Social Determinants of health: Good social support
Discussed with other providers: N/A
Escalation of Care includes Admit/Obs: After being observed in the Emergency Department, pt stable for discharge.
Occasional wrong word or 'sound a like' substitutions may have occurred due to the inherent limitations of voice recognition software. Read the chart carefully and recognize, using context, where substitutions have occurred.
*Critical Care Note
Total Time (30-74mins, 75-104mins- exclusive of procedures): Not Applicable
ED Attending Note
-
Portions of this chart may have been created with voice recognition software.� Occasional wrong word or��sound alike� substitutions may have occurred due to the inherent limitations of voice recognition software.
Discharge Plan
Departure
Patient Disposition: Home (Routine Discharge)
Date of Disposition: 09/11/24
Time of Disposition: 15:48
Patient with high blood pressure during this ER visit?: Yes
Discharge Problem:
Essential (primary) hypertension
Instructions: High Blood Pressure (DC), BLOOD PRESSURE
Prescriptions:
New
hydralazine 10 mg tablet
10 mg PO BID Qty: 20 0RF
No Action
lidocaine 4 % Adhesive Patch,Medicated
1 patch TOPICAL DAILY PRN (Reason: pain)
simvastatin 10 mg Tablet
10 mg PO HS
Chloraseptic Sore Throat 6-10 mg Lozenge
1 minerva PO Q4HPRN PRN (Reason: sore throat) Qty: 18 0RF
diltiazem HCl 180 mg Capsule,Extended Release 24hr
180 mg PO DAILY Qty: 30 0RF
losartan 100 mg Tablet
100 mg PO DAILY Qty: 30 0RF
Eliquis 5 mg Tablet
5 mg PO BID Qty: 60 0RF
amoxicillin-pot clavulanate [Augmentin] 500-125 mg tablet
1 tab PO BID 7 Days Qty: 14 0RF
fluconazole [Diflucan] 100 mg tablet
100 mg PO DAILY 3 Days Qty: 3 0RF
gabapentin 300 mg Capsule
300 mg PO TID 30 Days Qty: 90 0RF
Activity Restrictions/Additional Instructions:
Please return for any worsening symptoms.
You may return at any time if you have further concerns.
Please follow up with your doctor at the first available appointment, preferably this week.
As we discussed, please take your blood pressure in the afternoon. If your blood pressure is greater than 160/90, please take a dose of hydralazine. Please repeat this at nighttime with the same parameters. In the meantime, please call your
primary care doctor and auctioneer art for medication adjustment and reevaluation.
Thank you for choosing [facility].
Interventions
Interventions:
*Risk Screen - Suicide Last Done: 09/11/24 13:33
*General Assessment Last Done: 09/11/24 13:33
*Neglect/Abuse Screening Last Done: 09/11/24 13:33
*ED COVID-19 Vaccine History Last Done: 09/11/24 13:33
Discharge Date and Time
Print Language: RWANDAN
[2024-09-11] MEDS: APRESOLINE 10 MG PO (15:59)
[2024-09-11 16:11] VITALS: BP 180/108
== END 2024-09-11 16:16 | disposition home or self-care (01) ==
LOC: EMR 13:23
PROVIDERS: Emergency Medicine; EMERGENCY PHYSICIAN Student in an Organized Health Care Education/Training Program; FAMILY PHYSICIAN Nurse Practitioner Family
DX: I10 Essential (primary) hypertension (principal); Z87.891 Personal history of nicotine dependence; Z79.899 Other long term (current) drug therapy
CPT/HCPCS: 99284; 80053; 84484; 85025; 93005

== ENCOUNTER 2024-10-07 14:43 | Inpatient (IN) | payer OTHER, SELFPAY ==
[2024-10-07] VITALS (14 sets, daily range): BP systolic 104–175; BP diastolic 64–100; BMI 30.5
--- NOTE | 2024-10-07 10:10 | EDRN ---
Dr. Brown in room w/ pt at thistime.
--- NOTE | 2024-10-07 10:20 | ED.GENMED ---
History of Present Illness
<Van Brandon DO, Resident - Last Filed: 10/07/24 13:26>
General
Chief Complaint: Heart Rate Problem
Source: patient and records
Time Seen by Provider: 10/07/24 09:40
History of Present Illness
History of Present Illness:
69-year-old female with past medical history of paroxysmal atrial fibrillation on Xarelto, hypertension, with a recent ED visit for hypertensive urgency presents with elevated blood pressures tachycardia on home monitor. Patient reports her blood
pressures were elevated at 162/98 and heart rate in the 160s. Patient recently has been having difficulty with her blood pressure management, she is unhappy with the side effects they are causing. Patient reports having conversation with
floorworker and PCP regarding switching these medications. Patient takes losartan, diltiazem ER. Last Tuesday she reports stopping her diltiazem and Xarelto due to the side effects, however she restarted them on Tuesday and has been taking them
subsequently since. Patient reports since restarting her medications she has noticed that her blood pressures are now controlled, still elevated to the 160s. This morning she began having sensations of palpitations, and subsequently arranged
transport to the emergency room. In the ED EKG demonstrates patient is not normal sinus rhythm, pressures were elevated on admission but have returned to normal limits on recheck. Patient is endorsing slight headache and dizziness which coincide
with the elevated pressures.
Past History
<Van Brandon DO, Resident - Last Filed: 10/07/24 13:26>
Past History
ED Past Medical History: Arrthythmia and HTN
ED Past Surgical History: None
Social History
Tobacco: Non-smoker
Alcohol: Former
Drug: None
Personal: Single
Living: alone
Review of Systems
<Van Brandon DO, Resident - Last Filed: 10/07/24 13:26>
Review of Systems
Constitutional: Reports no symptoms
Respiratory: Reports no symptoms
Cardiac: Reports palpitations
ABD/GI: Reports no symptoms
Neurological: Reports dizzy and headache
Phy Exam
<Van Brandon DO, Resident - Last Filed: 10/07/24 13:26>
General Physical Exam
General Presentation: well appearing and no apparent distress
General Skin: warm and dry
Cardiovascular Exam
Cardiovascular Exam: regular rate/rhythm, no edema and no murmur
Pulmonary Exam
Pulmonary Exam: lungs clear and no respiratory distress
Gastrointestinal Exam
Gastrointestinal Exam: non tender, soft and non distended
Course
<Van Brandon DO, Resident - Last Filed: 10/07/24 13:26>
Orders/Labs/Results
Orders:
Orders
10/07/24 09:16
Electrocardiogram (*1) Urgent
Reason for Study: Tachycardia
EKG- Treatment ONCE
10/07/24 09:47
Cardiac Monitoring- Treatment ONCE
IV Insert/Care/Rem.- Treatment PRN
10/07/24 10:00
Complete Blood Count/With Diff Urgent
Comprehensive Metabolic Panel Urgent
Serum Osmolality Urgent
Comment: ADD ON
Troponin I Urgent
10/07/24 11:10
Add On- LAB Urgent
Tests Added?: Serum osmolality
10/07/24 12:43
Osmolality, Random Urine Urgent
Date Specimen was Collected: 10/07/24
Time Specimen was Collected: 12:35
Troponin I Urgent
Urine Sodium Stat
Date Specimen was Collected: 10/07/24
Time Specimen was Collected: 12:35
10/07/24 12:54
Electrocardiogram (*1) Urgent
Reason for Study: Chest Pain
EKG- Treatment ONCE
10/07/24 13:17
NEPHROLOGY CONSULT Urgent
Consulting Provider: Sterling Cruz
Was physician already notified: Yes
Reason for consult: Hyponatremia
10/07/24 16:00
Troponin I Routine
Abnormal Lab Results
10/07/24 10/07/24
10:00 12:43
RBC 4.17 L 10^6/uL
(4.20-5.40)
MCH 34.3 H pg
(27.0-31.0)
Absolute Lymphs (auto) 0.8 L 10^3/uL
(1.2-3.4)
Absolute Monos (auto) 0.7 H 10^3/uL
(0.1-0.6)
Lymphocytes % 13.7 L %
(20.5-51.1)
Monocytes % 11.9 H %
(1.7-9.3)
Sodium 123 L mmol/L
(135-145)
Chloride 94 L mmol/L
(98-107)
Carbon Dioxide 19 L mmol/L
(22-30)
Glucose 125 H mg/dl
(70-99)
Serum Osmolality 259 L mOsm/kg
(275-300)
Troponin I 0.041 H* D ng/ml
Urine Sodium 96 H mmol/L
(30-90)
10/07/24 10:00
10/07/24 10:00
Vital Signs
Initial and Last Documented VS:
Initial Vital Signs
Temp Pulse Resp BP Pulse Ox
98.2 F 102 18 142/100 98
10/07/24 09:21 10/07/24 09:21 10/07/24 09:21 10/07/24 09:21 10/07/24 09:21
Last Documented Vital Signs
Temp Pulse Resp BP Pulse Ox
98.2 F 86 16 116/65 97
10/07/24 09:21 10/07/24 13:30 10/07/24 13:30 10/07/24 12:00 10/07/24 13:30
<Garrett Brown, DO - Last Filed: 10/07/24 14:03>
Orders/Labs/Results
Orders:
Orders
10/07/24 09:16
Electrocardiogram (*1) Urgent
Reason for Study: Tachycardia
EKG- Treatment ONCE
10/07/24 09:47
Cardiac Monitoring- Treatment ONCE
IV Insert/Care/Rem.- Treatment PRN
10/07/24 10:00
Complete Blood Count/With Diff Urgent
Comprehensive Metabolic Panel Urgent
Serum Osmolality Urgent
Comment: ADD ON
Troponin I Urgent
10/07/24 11:10
Add On- LAB Urgent
Tests Added?: Serum osmolality
10/07/24 12:43
Osmolality, Random Urine Urgent
Date Specimen was Collected: 10/07/24
Time Specimen was Collected: 12:35
Troponin I Urgent
Urine Sodium Stat
Date Specimen was Collected: 10/07/24
Time Specimen was Collected: 12:35
10/07/24 12:54
Electrocardiogram (*1) Urgent
Reason for Study: Chest Pain
EKG- Treatment ONCE
10/07/24 13:17
NEPHROLOGY CONSULT Urgent
Consulting Provider: Sterling Cruz
Was physician already notified: Yes
Reason for consult: Hyponatremia
10/07/24 16:00
Troponin I Routine
Abnormal Lab Results
10/07/24 10/07/24
10:00 12:43
RBC 4.17 L 10^6/uL
(4.20-5.40)
MCH 34.3 H pg
(27.0-31.0)
Absolute Lymphs (auto) 0.8 L 10^3/uL
(1.2-3.4)
Absolute Monos (auto) 0.7 H 10^3/uL
(0.1-0.6)
Lymphocytes % 13.7 L %
(20.5-51.1)
Monocytes % 11.9 H %
(1.7-9.3)
Sodium 123 L mmol/L
(135-145)
Chloride 94 L mmol/L
(98-107)
Carbon Dioxide 19 L mmol/L
(22-30)
Glucose 125 H mg/dl
(70-99)
Serum Osmolality 259 L mOsm/kg
(275-300)
Troponin I 0.041 H* D ng/ml
Urine Sodium 96 H mmol/L
(30-90)
10/07/24 10:00
10/07/24 10:00
Vital Signs
Initial and Last Documented VS:
Initial Vital Signs
Temp Pulse Resp BP Pulse Ox
98.2 F 102 18 142/100 98
10/07/24 09:21 10/07/24 09:21 10/07/24 09:21 10/07/24 09:21 10/07/24 09:21
Last Documented Vital Signs
Temp Pulse Resp BP Pulse Ox
98.2 F 86 16 116/65 97
10/07/24 09:21 10/07/24 13:30 10/07/24 13:30 10/07/24 12:00 10/07/24 13:30
<Van Brandon DO, Resident - Last Filed: 10/07/24 13:26>
MDM/Problems Addressed
Differential Diagnosis Includes:
Paroxysmal atrial fibrillation, hypertensive urgency, benign hypertension with anxiety
MDM/Problems Addressed:
Patient reports elevated pressures and sensation of palpitations which coincide with dizziness and headache starting this morning. Patient takes home blood pressure readings with an automated cuff which also tells heart rate
Patient reports stopping her diltiazem and Xarelto last week, restarting on Tuesday taking daily since. She is having an ongoing conversation with her floorworker and PCP regarding blood pressure medications and side effects
In ED EKG demonstrates normal sinus rhythm
Pressures were elevated on admission, subsequently have returned within normal limits. Patient reports headache and dizziness are resolving
Check CBC, CMP and troponin
Chemistry returned with sodium 123, patient states she is chronically low and has an appointment with nephrology in the future
Will check urine sodium, urine osmolality, serum osmolality and calculate FeNa
Encourage patient to continue taking all of her prescribed blood pressure medications daily and to call her floorworker/PCP to schedule follow-up and to continue her conversation on her blood pressure management/side effects
Patient reports 1 glass of wine daily, educated patient on the association between alcohol use and atrial fibrillation, encouraged abstinence
Nephrology was consulted, they recommended admission and 24 hours of fluid restriction for her hyponatremia
Reached out to hospital team for admission
Chronic conditions affecting care: HTN
Acute Exacerbation and/or Progression of Chronic Illness: HTN
<Van Brandon DO, Resident - Last Filed: 10/07/24 13:26>
*Critical Care Note
Total Time (30-74mins, 75-104mins- exclusive of procedures): Not Applicable
ED Attending Note
<Van Brandon DO, Resident - Last Filed: 10/07/24 13:26>
-
Portions of this chart may have been created with voice recognition software.� Occasional wrong word or��sound alike� substitutions may have occurred due to the inherent limitations of voice recognition software.
<Garrett Brown DO - Last Filed: 10/07/24 14:03>
ED Attending Note
Patient seen and examined by attending physician: Yes
I performed a history and physical exam of patient and discussed management with resident, I reviewed resident's note and agree with documented findings and plan of care.: Yes
ED Attending Note:
I reviewed and agree with history and treatment plan by Van Brandon DO. My exam revealed 69-year-old female in no acute distress. Progressive hyponatremia. Discussed with nephrology, who recommends fluid restriction and admission for
further monitoring.
Discharge Plan
Departure
Patient Disposition: Admit
Date of Disposition: 10/07/24
Time of Disposition: 13:26
Admit to: Telemetry
Presentation/result/management discussed w/ accepting MD/DO: Hospitalist
Patient with high blood pressure during this ER visit?: Yes
Condition: Fair
Discharge Problem:
Acute hyponatremia, Hypertensive urgency
Prescriptions:
No Action
lidocaine 4 % Adhesive Patch,Medicated
1 patch TOPICAL DAILY PRN (Reason: pain)
simvastatin 10 mg Tablet
10 mg PO HS
Chloraseptic Sore Throat 6-10 mg Lozenge
1 minerva PO Q4HPRN PRN (Reason: sore throat) Qty: 18 0RF
diltiazem HCl 180 mg Capsule,Extended Release 24hr
180 mg PO DAILY Qty: 30 0RF
losartan 100 mg Tablet
100 mg PO DAILY Qty: 30 0RF
Eliquis 5 mg Tablet
5 mg PO BID Qty: 60 0RF
amoxicillin-pot clavulanate [Augmentin] 500-125 mg tablet
1 tab PO BID 7 Days Qty: 14 0RF
fluconazole [Diflucan] 100 mg tablet
100 mg PO DAILY 3 Days Qty: 3 0RF
gabapentin 300 mg Capsule
300 mg PO TID 30 Days Qty: 90 0RF
hydralazine 10 mg tablet
10 mg PO BID Qty: 20 0RF
Referrals:
Ksenia Roberts CRNP [Family Provider] -
Interventions
Interventions:
*Risk Screen - Suicide Last Done: 10/07/24 09:55
*General Assessment Last Done: 10/07/24 09:55
*Neglect/Abuse Screening Last Done: 10/07/24 09:55
ED- Fall Risk Assessment Last Done: 10/07/24 09:55
*ED COVID-19 Vaccine History Last Done: 10/07/24 09:55
ED- Cardiac Assessment Last Done: 10/07/24 09:55
ED- Pulmonary Assessment Last Done: 10/07/24 09:55
Discharge Date and Time
Print Language: LATVIAN
[2024-10-07 10:29] LABS: % Eosinophils 0.3 % (0-6); % Immature Granulocytes 0.2 % (0-0.5); % Lymphocytes 13.7 % (20.5-51.1); % Monocytes 11.9 % (1.7-9.3); % Neutrophils 73.9 % (42.2-75.2); Absolute Lymphocytes 0.8 10^3/uL (1.2-3.4); Absolute Monocytes 0.7 10^3/uL (0.1-0.6); Absolute Neutrophils 4.5 10^3/uL (1.4-6.5); Hematocrit 38.7 % (37.0-47.0); Hemoglobin 14.3 g/dL (12.0-16.0); Mean Corpuscular Hgb 34.3 pg (27.0-31.0); Mean Corpuscular Volume 92.8 fL (81.0-99.0); Mean Platelet Volume 8.8 fL (7.4-10.4); Nucleated Red Blood Cells % 0 %; Platelet Count 243 10^3/uL (130-400); Red Blood Cell Count 4.17 10^6/uL (4.20-5.40); Red Cell Dist. Width 13.1 % (11.5-14.5); White Blood Cell Count 6.1 10^3/uL (4.8-10.8)
--- NOTE | 2024-10-07 10:37 | EDRN ---
Pt states she was started on Eliquis and cardizem mart a few months ago and has not been feeling herself since. Pt called quality engineer and informed him that she wanted to stop the eliquis and cardizem. She was upset when she was advised to seek
counseling by the quality engineer. Pt stopped taking her eliquis and cardizem Tuesday. Pt stated she was feeling her normal self by though on Tuesday pt started w/ HTN w/ SBP >160 and DBP>100 so pt started an old med that she says Dr. Fagan had
prescribed in the past HCTZ. Pt's BP was still high and today had palpitations and her HR on her BP monitor read 160. Pt got a ride from neighbor and came to ED to be seen. Pt restarted both the eliquis and cardizem this am. Pt had continued taking
her losartan and well butrin in am and her statin at night.
[2024-10-07 10:45] LABS: ALT (SGPT) 25 U/L (0-35); AST (SGOT) 31 U/L (14-36); Albumin 4.6 g/dl (3.5-5.0); Alkaline Phosphatase 70 U/L (38-126); Blood Urea Nitrogen 11 mg/dl (7-17); Calcium 9.4 mg/dl (8.4-10.2); Carbon Dioxide 19 mmol/L (22-30); Chloride 94 mmol/L (98-107); Glucose 125 mg/dl (70-99); Potassium 4.4 mmol/L (3.5-5.1); Sodium 123 mmol/L (135-145); Total Protein 7.2 g/dl (6.3-8.2); eGFR > 60.00
[2024-10-07 10:56] LABS: Troponin I 0.031 ng/ml
[2024-10-07 12:21] LABS: Osmolality Serum 259 mOsm/kg (275-300)
[2024-10-07 13:06] LABS: Osmolality Urine 570 mOsm/kg (300-900)
--- NOTE | 2024-10-07 13:30 | HPS.HSE ---
Family Physician
-
Family Physician: LUCÍA Robert
Chief Complaint
-
Elevated Heart Rate and Blood Pressure
History of Present Illness
Patient is a 69 y/o female past medical history of A-fib, Hypertension and Chronic Hyponatremia who presents with elevated blood pressure and heart rate on home monitor this morning. Patient reports about a week ago she stopped taking her Xarelto
and Diltiazem as she did not like the way they were making her feel. She reports by she was feeling very, but on Tuesday her blood pressure started get elevated. She resumed her Xarelto and Diltiazem on Tuesday, and took her as needed
hydralazine. This morning she developed palpitations and noted elevated heart rate in the 160s which prompted her to come to the emergency department for evaluation. Blood revealed sodium 123. Patient reports she does not follow a fluid
restriction at home, but does not think she drink excess amount of fluid. She reports taking ibuprofen one time this week due to her chronic back pain, but this atypical for her. She denies shortness of breath or lower extremity edema.
Medical History
Past Medical History
Past Medical History: Reports Other
Additional Past Medical History:
Paroxysmal Atrial Fibrillation
Essential Hypertension
Hyperlipidemia
Chronic Hyponatremia
Chronic Back Pain
Depression
Past Surgical History: Reports Other
Additional Past Surgical History:
Left L3-L3, L4-L5 Hemilaminectomy
Bilateral Knee Replacements
Social History
Tobacco: Smoker (About 5 cigarettes per day)
Alcohol: Daily (1-2 glasses of wine nightly)
Family History
Family History: Not pertinent
Allergies / Home Medications
Allergies reflects when Allergies were last updated in [employer].
Home Medications with original date entered in [employer]
Allergy/Medication List:
Allergies
Allergy/AdvReac Type Severity Reaction Status Date / Time
No Known Allergies Allergy Verified 10/07/24 09:25
Home Medications
simvastatin 10 mg tablet 10 mg PO HS High Cholesterol 04/29/24
losartan 100 mg tablet 100 mg PO DAILY #30 tabs 05/02/24
acetaminophen 500 mg tablet 1,000 mg PO DAILY 10/07/24
bupropion HCl 150 mg tablet,12 hr sustained-release 150 mg PO DAILY 10/07/24
diltiazem HCl 120 mg capsule,24 hr,extended release 120 mg PO HS 10/07/24
hydralazine 10 mg tablet 10 mg PO DAILYPRN PRN sbp>160 or dbp>90 10/07/24
rivaroxaban 20 mg tablet (Xarelto) 20 mg PO QPM 10/07/24
Review of Systems
-
A 12 point ROS was completed and negative except as noted: Yes
Constitutional: Denies Fever or Chills
Respiratory: Denies Cough or Trouble Breathing
Cardiac: Reports Palpitations
Physical Exam
Vital Signs
Vital Signs
Temp Pulse Resp BP Pulse Ox
98.2 F 89 16 116/65 98
10/07/24 09:21 10/07/24 12:30 10/07/24 12:30 10/07/24 12:00 10/07/24 12:30
Physical Exam
General: Comfortable and Conversant
HEENT: Anicteric and Moist mucous membranes
Respiratory: Clear and Non Labored Respirations
Cardiac: S1/S2 and Regular Rhythm; No Tachycardia
GI: Soft and Non Tender
Rectal: Deferred by Provider
Musculoskeletal: No Clubbing, No Cyanosis and No Edema
Skin: Warm and Dry
Neuro: Awake, Alert, Oriented and Nonfocal/grossly intact
Psych: Calm
Laboratory Results
-
10/07/24 10:00
10/07/24 10:00
Laboratory Results
Total Bilirubin 1.0 mg/dl (0.2-1.3) 10/07/24 10:00
AST 31 U/L (14-36) 10/07/24 10:00
ALT 25 U/L (0-35) 10/07/24 10:00
Alkaline Phosphatase 70 U/L (38-126) 10/07/24 10:00
Troponin I 0.031 ng/ml 10/07/24 10:00
Data Reviewed
-
Lab Data: Labs Reviewed by me
Old Records: Reviewed
Impression/Plan
-
Acute on Chronic Hyponatremia, likely SIADH
-Consult Nephrology
-Start fluid restriction 1200mL per day
-Recheck sodium level in AM - Consider Samsca if not improving
Elevated Troponin, unclear etiology possibly related to tachycardia
-Monitor on Telemetry
-Continue to trend
Paroxysmal Atrial Fibrillation
-Continue Xarelto for anticoagulation
-Continue Diltiazem for rate control
Essential Hypertension
-Continue losartan and Diltiazem
Hyperlipidemia
-Continue simvastatin
Chronic Back Pain
-Add Lidocaine Patch
-Continue Tylenol
-Avoid NSAIDS
Depression
-Continue Wellbutrin
DVT proph: Xarelto
Code Status: Full Code
[2024-10-07 13:31] LABS: Urine Sodium 96 mmol/L (30-90)
[2024-10-07 13:36] LABS: Troponin I 0.041 ng/ml
--- NOTE | 2024-10-07 13:45 | EDRN ---
Minh PLATT in room at this time.
--- NOTE | 2024-10-07 14:01 | W.PN.UPDATE ---
Update Note
Progress Note Update
This note serves as an addendum to the H&P by ski maker BIBI: Leigh WALTERS.
HPI
68F HX chr hyponatremia, Prx AF HTN on MDR , HX recent ER Visit for HTN urgency and tachycardia on home monitor.
Seen at ER for
- Onset of acute sensations of palpitations, and subsequently arranged transport to the emergency room.
- Patient reports her blood pressures were elevated at 162/98 and heart rate in the 160s.
- Patient recently has been having difficulty with her blood pressure management
- Patient reports having conversation with executor of estate and PCP regarding switching these medications.
- Patient takes losartan, diltiazem ER
- Last Tuesday she reports stopping her diltiazem and Xarelto due to the side effects, however she restarted them on Tuesday and has been taking them subsequently since.
- Patient reports since restarting her medications she has noticed that her blood pressures are now controlled, still elevated to the 160s.
ROS:
Patient is endorsing slight headache and dizziness which coincide with the elevated pressures.
At ER:
EKG demonstrates patient is not normal sinus rhythm, pressures were elevated on admission but have returned to normal limits on recheck.
PHX: see above
Reviewed VS: BP 116/65
PE
Gen: conversant , not toxic
HEENT: anicteric , no pallor
Neck: supple, no carotid bruit
Lungs:CTA
Cor:RRR S1 S2. No mumur
Abdomen: benign exam
TRACKWALKER: AAO3 , NFND
MS: no edema
Psych:appropriates
Laboratory Tests
05/03/24 09/11/24 10/07/24
03:53 13:39 10:00
Sodium 128 L 127 L 123 L
Chloride 94 L
Carbon Dioxide 20 L 19 L
Creatinine 0.6
eGFR > 60.00
Glucose 125 H
Serum Osmolality 259 L
Troponin I
Urine Osmolality
Urine Sodium
10/07/24
12:43
Sodium
Chloride
Carbon Dioxide
Creatinine
eGFR
Glucose
Serum Osmolality
Troponin I Pending
Urine Osmolality 570
Urine Sodium 96 H
EKG
NORMAL SINUS RHYTHM
NORMAL ECG
WHEN COMPARED WITH ECG OF 07-OCT-2024 09:20,
NO SIGNIFICANT CHANGE WAS FOUND
04/30/24 TTE
Normal biventricular size and systolic function without regional wall motion abnormality.
Estimated LVBEF 65-70%.
Aortic sclerosis without stenosis.
Last hospitalist admission: Date of Admission: 04/28/24 -Date of Discharge: 05/03/24
DC DXs:
Atrial fibrillation
Acute epiglottis
ASSESSMENT & PLAN
Subjective palpitation but NSR and Nl EKG at ED
Reported HBP @ Home
Upon arrival to ER BP 140/100 then stable around 115/65 - 125/88
- Observe BP and HR on TLM monitor
HX MDR HTN
- c/w HAT LINER Meds; Diltiazem ER 180 daily. Losartan 100mg daily. Hydralzine 10mg BID
- Observe BP
Asymptomatic euvolemic acute on chronic hyponatremia
- Report she does not drink very much fluid, likely less than 40 Oz/per day.
- Low Sr Osm, Hi Ur Osm suspect ADH excess (? chr SIADH due to chr pain)
- associated hypochloremia
- Observe Na with FR 40 Fl Oz daily
- Nephro consulted
Metabolic acidosis s/p Bicarb per Neph. Awaiting AM BMP
HX non anion gap metabolic acidosis
- f/u HCO3
In NSR
HX Prx atrial fibrillation with RVR .
- On PO Cardizem CD
- On Xarelto
Hyperlipidemia
DVT PX; SCD
Full code
IP TLM
--- NOTE | 2024-10-07 14:13 | EDRN ---
Dr. Simmons in room at present w/ pt.
--- NOTE | 2024-10-07 14:22 | W.CON.NEPH ---
Consultation
-
Date/Time Consultation Requested: 10/07/2024 at 1 PM
Date/Time Consultation Performed: 10/07/24 at 2 PM
Requesting Provider: Dr. Brandon
Performing Provider: Dr. Sterling Cruz
Reason for Consultation: hyponatremia
Medical History
-
Chief Complaint: palpitations
History of Present Illness:
69-year-old female with past medical history of paroxysmal atrial fibrillation on Xarelto, hypertension, with a recent ED visit for hypertensive urgency presents with elevated blood pressures tachycardia on home monitor. Patient reports her blood
pressures were elevated at 162/98 and heart rate in the 160s. Last Tuesday she reports stopping her diltiazem and Xarelto due to the side effects, however she restarted them on Tuesday and has been taking them subsequently since.
she has chronic back pain but does not take any NSAIDs regular she took it one time motion last week
baseline sodium is 127 she was seen in hospital past is not filed with us in the office yet
Past Medical History
past medical history of paroxysmal atrial fibrillation on Xarelto, hypertension, chronic back pain, hypertension, chronic hyponatremia
Social History
Tobacco: Smoker
Alcohol: Daily
Family History
No CKD
Allergies / Home Medications
Allergy/AdvReac Type Severity Reaction Status Date / Time
No Known Allergies Allergy Verified 10/07/24 09:25
�Medication �Instructions �Recorded �Confirmed �Type
lidocaine 4 % topical patch 1 patch topical DAILY PRN pain 04/29/24 04/29/24 History
simvastatin 10 mg tablet 10 mg PO HS High Cholesterol 04/29/24 04/29/24 History
fluconazole 100 mg tablet 100 mg PO DAILY 3 days #3 tabs 05/02/24 Rx
(Diflucan)
gabapentin 300 mg capsule 300 mg PO TID Pain 30 days #90 caps 05/02/24 04/29/24 Rx
losartan 100 mg tablet 100 mg PO DAILY #30 tabs 05/02/24 Rx
hydralazine 10 mg tablet 10 mg PO BID #20 tabs 09/11/24 Rx
diltiazem HCl 120 mg capsule,24 120 mg PO HS 10/07/24 10/07/24 History
hr,extended release
Review of Systems
-
she denies any chest pain shortness of breath nausea or vomiting palpitations have resolved
All other systems: Negative unless noted
Physical Exam
Vital Signs
Vital Signs
Temp Pulse Resp BP Pulse Ox
98.2 F 89 17 139/79 96
10/07/24 09:21 10/07/24 14:00 10/07/24 14:00 10/07/24 14:00 10/07/24 14:00
Lab Results
WBC 6.1 10^3/uL (4.8-10.8) 10/07/24 10:00
RBC 4.17 10^6/uL (4.20-5.40) L 10/07/24 10:00
Hgb 14.3 g/dL (12.0-16.0) 10/07/24 10:00
Hct 38.7 % (37.0-47.0) 10/07/24 10:00
Plt Count 243 10^3/uL (130-400) 10/07/24 10:00
Sodium 123 mmol/L (135-145) L 10/07/24 10:00
Potassium 4.4 mmol/L (3.5-5.1) 10/07/24 10:00
Chloride 94 mmol/L (98-107) L 10/07/24 10:00
Carbon Dioxide 19 mmol/L (22-30) L 10/07/24 10:00
BUN 11 mg/dl (7-17) 10/07/24 10:00
Creatinine 0.6 mg/dL (0.6-1.0) 10/07/24 10:00
eGFR > 60.00 10/07/24 10:00
Glucose 125 mg/dl (70-99) H 10/07/24 10:00
Calcium 9.4 mg/dl (8.4-10.2) 10/07/24 10:00
Albumin 4.6 g/dl (3.5-5.0) 10/07/24 10:00
Physical Exam
General no acute distress
HEENT no cephalic atraumatic extraocular muscle intact no scleral icterus no JVD neck supple
lungs clear to auscultation bilateral
heart regular with ectopy
abdomen soft nontender positive bowel sounds
extremities no edema pulses present bilateral
Neurologically nonfocal alert and oriented x 3
Skin no lesions no abrasions no petechiae
Psych normal affect no bizarre behavior
Data Reviewed
-
Labs: Labs Reviewed by me
Assessment/Plan
-
Assessment
Hyponatremia= likely SIADH from chronic pain
Hypertension
Hyperlipidemia
A-fib rapid ventricular rate
Plan
hyponatremia 123. Admitted April 2024 with hyponatremia 122
her sodium baseline since April 2024 is about 127 or 128
she is not on thiazide diuretic
I suspect she has RAKEL DH for chronic back pain
fluid restrict 1 L
increase protein her diet
avoid NSAIDs
urine sodium 96 consistent with as SIADH
consider Tolvaptan if does not respond to fluid restriction. and he said that patien states she only drinks about 16-32 ounces daily
repeat labs this evening
--- NOTE | 2024-10-07 16:33 | EDRN ---
16:00 troponin drawn and sent at thsi time.
[2024-10-07 17:17] LABS: Troponin I 0.038 ng/ml
[2024-10-07] MEDS: XARELTO 20 MG PO (18:12)
[2024-10-07] MEDS: LIDOCAINE 4% PATCH 1 PATCH TOPICAL (18:12)
[2024-10-07] MEDS: LIPITOR 10 MG PO (21:16)
[2024-10-07] MEDS: CARDIZEM CD 120 MG PO (21:16)
[2024-10-08 03:20] VITALS: BP 129/79
[2024-10-08 06:00] VITALS: BMI 30.4
--- NOTE | 2024-10-08 06:41 | W.PN.HOSP.TC ---
Today's Communication/Plan
-
Monitor Na
cont fluid restriction
Samsca as per Nephro
Assessment / Plan
Assessment / Plan
Physical Exam
General: Comfortable and Conversant
HEENT: Anicteric and Moist mucous membranes
Respiratory: Clear and Non Labored Respirations
Cardiac: S1/S2 and Regular Rhythm; No Tachycardia
GI: Soft and Non Tender
Musculoskeletal: No Clubbing, No Cyanosis and No Edema
Skin: Warm and Dry
Neuro: AOx3
Psych: Calm
69F A-fib, Hypertension and chronic hyponatremia who p/w elevated blood pressure and heart rate on home monitor. Patient reported self stopping Xarelto and Diltiazem for about a week as she did not like the way they were made her feel. ED eval
noted sodium 123, patient typically 127 -128 in past.
Acute on Chronic Hyponatremia, likely SIADH
-Consult Nephrology appreciated
-cont fluid restriction 1200mL per day
-samsca as per Nephro
Mild Metabolic Acidosis
monitor
Elevated Troponin, likely non-ischemic myocardial injury
-Monitor on Telemetry
-Chest pain free
-Troponin peak 0.041
Paroxysmal Atrial Fibrillation
-Continue Xarelto for anticoagulation
-Continue Diltiazem for rate control
Essential Hypertension
-Continue losartan and Diltiazem
Hyperlipidemia
-Continue simvastatin
Chronic Back Pain
-Add Lidocaine Patch
-Continue Tylenol
-Avoid NSAIDS
Depression
-Continue Wellbutrin
DVT proph: Xarelto
Code Status: Full Code
I spent a total of 40 minutes with the patient or on the floor. More than 50% of this time involved counseling and coordination of care.
Anticipated Discharge: 24 - 48 hours
Subjective/Interval History
-
Date of Service: October 08, 2024
No acute distress. Overall reports feeling well. Ambulatory without need for assist device. Na remains low.
Objective Data
-
Labs:
Laboratory Results
10/08/24
06:30
Sodium Pending
Potassium Pending
Chloride Pending
Carbon Dioxide Pending
BUN Pending
Creatinine Pending
Glucose Pending
Calcium Pending
Vital Signs:
Vital Signs
Temp Pulse Resp BP Pulse Ox
97.9 F 77 14 129/79 97
10/08/24 03:20 10/08/24 03:20 10/08/24 03:20 10/08/24 03:20 10/08/24 03:20
I&O
10/06/24 10/07/24 10/08/24
06:59 06:59 06:59
Intake Total 340 / 340
Output Total 150 / 150
Balance 190 / 190
[2024-10-08 07:00] VITALS: BP 108/78
[2024-10-08 08:44] LABS: Blood Urea Nitrogen 15 mg/dl (7-17); Calcium 8.8 mg/dl (8.4-10.2); Carbon Dioxide 17 mmol/L (22-30); Chloride 96 mmol/L (98-107); Estimated Creatinine Clearance 81 ml/min; Glucose 101 mg/dl (70-99); Magnesium 1.9 mg/dl (1.6-2.3); Potassium 4.2 mmol/L (3.5-5.1); Sodium 123 mmol/L (135-145); eGFR > 60.00
[2024-10-08] MEDS: TYLENOL 1000 MG PO (09:26)
[2024-10-08] MEDS: LIDOCAINE 4% PATCH 1 PATCH TOPICAL (09:27)
[2024-10-08] MEDS: COZAAR PO (09:28)
[2024-10-08] MEDS: WELLBUTRIN SR (12 hour sustained release) 150 MG PO (09:28)
[2024-10-08 10:56] LABS: Cortisol, Random 11.2 ug/dl; TSH Reflex To Free T4 1.35 uIU/ml (0.47-4.68)
[2024-10-08 11:00] VITALS: BP 119/63
[2024-10-08] MEDS: MIRALAX 17 GRAMS PO (11:13)
[2024-10-08 15:00] VITALS: BP 149/84
--- NOTE | 2024-10-08 15:00 | CM ---
Patient seen bedside.
IA completed.
Patient lives alone in a 1 story home with a ramp to enter.
No assistive devices.
Patient drives.
Patient has had [facility] in the past after knee surgery, not current.
Patient denies insecurities.
Patient has transportation home when ready for d/c.
IMM Completed.
PCP: Dr Roberts
Pharmacy: [facility]
Plan:home no needs anticipated.
[2024-10-08] MEDS: XARELTO 20 MG PO (17:03)
--- NOTE | 2024-10-08 18:29 | W.PN.NEPH.PH ---
Today's Communication / Plan
-
samsca
Assessment/Plan
-
Assessment
Hyponatremia= likely SIADH from chronic pain
Hypertension
Hyperlipidemia
A-fib rapid ventricular rate
Plan
hyponatremia 123.
her sodium baseline since April 2024 is about 127 or 128
she is not on thiazide diuretic
I suspect she has RAKEL DH for chronic back pain
U osmo high at 570, u na 96
maintain fluid restrict 40ounces/day
will dose samsca today
increase protein her diet
avoid NSAIDs
labs in am
-
-
Date of Service: October 08, 2024
CC / HPI / ROS
-
Chief Complaint:
hyponatremia
History of Present Illness:
sodium no change at 123
BP stable
no fever, bicarb at 17
Review of Systems:
no cp or sob
mild dizzy in mornings but rest of the day fine
Labs
-
Labs:
WBC 6.1 10^3/uL (4.8-10.8) 10/07/24 10:00
RBC 4.17 10^6/uL (4.20-5.40) L 10/07/24 10:00
Hgb 14.3 g/dL (12.0-16.0) 10/07/24 10:00
Hct 38.7 % (37.0-47.0) 10/07/24 10:00
Plt Count 243 10^3/uL (130-400) 10/07/24 10:00
Sodium 123 mmol/L (135-145) L 10/08/24 06:30
Potassium 4.2 mmol/L (3.5-5.1) 10/08/24 06:30
Chloride 96 mmol/L (98-107) L 10/08/24 06:30
Carbon Dioxide 17 mmol/L (22-30) L 10/08/24 06:30
BUN 15 mg/dl (7-17) 10/08/24 06:30
Creatinine 0.6 mg/dL (0.6-1.0) 10/08/24 06:30
eGFR > 60.00 10/08/24 06:30
Glucose 101 mg/dl (70-99) H 10/08/24 06:30
Calcium 8.8 mg/dl (8.4-10.2) 10/08/24 06:30
Albumin 4.6 g/dl (3.5-5.0) 10/07/24 10:00
Physical Exam
-
Vital Signs:
Vital Signs
Temp Pulse Resp BP Pulse Ox
98.3 F 85 18 149/84 96
10/08/24 15:00 10/08/24 15:00 10/08/24 15:00 10/08/24 15:00 10/08/24 15:00
Cardiovascular:: Regular rate and rhythm
Respiratory:: Bilateral: CTA
Lung Excursion:: Normal
Abdomen:: Nontender and Soft
Extremity Edema:: None: Bilateral:
[place]ham Catheter: No
[2024-10-08] MEDS: SAMSCA 15 MG PO (19:11)
[2024-10-08 19:38] VITALS: BP 146/78
[2024-10-08] MEDS: LIPITOR 10 MG PO (21:12)
[2024-10-08] MEDS: CARDIZEM CD 120 MG PO (21:13)
[2024-10-08 23:04] VITALS: BP 138/76
[2024-10-09 03:53] VITALS: BP 119/84
[2024-10-09 06:00] VITALS: BMI 29.8
[2024-10-09 07:30] VITALS: BP 137/74
[2024-10-09 08:12] LABS: Hematocrit 34.3 % (37.0-47.0); Hemoglobin 12.7 g/dL (12.0-16.0); Mean Corpuscular Hgb 34.7 pg (27.0-31.0); Mean Corpuscular Volume 93.7 fL (81.0-99.0); Platelet Count 241 10^3/uL (130-400); Red Blood Cell Count 3.66 10^6/uL (4.20-5.40); Red Cell Dist. Width 12.9 % (11.5-14.5); White Blood Cell Count 4.9 10^3/uL (4.8-10.8)
--- NOTE | 2024-10-09 08:27 | W.PN.HOSP.TC ---
Today's Communication/Plan
-
discharge
Assessment / Plan
Assessment / Plan
Physical Exam
General: Comfortable and Conversant
HEENT: Anicteric and Moist mucous membranes
Respiratory: Clear and Non Labored Respirations
Cardiac: S1/S2 and Regular Rhythm; No Tachycardia
GI: Soft and Non Tender
Musculoskeletal: No Clubbing, No Cyanosis and No Edema
Skin: Warm and Dry
Neuro: AOx3
Psych: Calm
69F A-fib, Hypertension and chronic hyponatremia who p/w elevated blood pressure and heart rate on home monitor. Patient reported self stopping Xarelto and Diltiazem for about a week as she did not like the way they were made her feel. ED eval
noted sodium 123, patient typically 127 -128 in past.
Acute on Chronic Hyponatremia, likely SIADH
-Consult Nephrology appreciated
-Na significantly improved with samsca as per Nephro
-patient to be discharged on 48 oz fluid restriction and Lasix 20 mg daily. Repeat BMP in 3-5 days discharge (script provided)
Mild Metabolic Acidosis
monitor
Elevated Troponin, likely non-ischemic myocardial injury
-Monitor on Telemetry
-Chest pain free
-Troponin peak 0.041 since trended down
Paroxysmal Atrial Fibrillation
-Continue Xarelto for anticoagulation
-Continue Diltiazem for rate control
Essential Hypertension
-Continue losartan and Diltiazem
Hyperlipidemia
-Continue simvastatin
Chronic Back Pain
-Add Lidocaine Patch
-Continue Tylenol
-Avoid NSAIDS
Depression
-Continue Wellbutrin
DVT proph: Xarelto
Code Status: Full Code
Medically stable for discharge home with outpatient follow up recommendations.
Total Time Preparing Discharge __40 minutes including examination of the patient, summary of the hospital stay, instructions for continuing care to all relevant caregivers; and preparation of discharge records, prescriptions, and referral
forms if necessary.
Anticipated Discharge: Today
Subjective/Interval History
-
Date of Service: October 09, 2024
No acute distress sitting up comfortably chair. Denies new acute issues. Eager to go home.
Objective Data
-
Labs:
Laboratory Results
10/09/24
07:43
WBC 4.9
Hgb 12.7
Hct 34.3 L
Plt Count 241
Sodium Pending
Potassium Pending
Chloride Pending
Carbon Dioxide Pending
BUN Pending
Creatinine Pending
Glucose Pending
Calcium Pending
Vital Signs:
Vital Signs
Temp Pulse Resp BP Pulse Ox
98.0 F 73 16 119/84 98
10/09/24 03:53 10/09/24 03:53 10/09/24 03:53 10/09/24 03:53 10/09/24 03:53
I&O
10/08/24 10/09/24 10/10/24
06:59 06:59 06:59
Intake Total 340 / 340 960 / 960
Output Total 150 / 150 1700 / 1700
Balance 190 / 190 -740 / -740
[2024-10-09 08:54] LABS: Sodium 132 mmol/L (135-145)
[2024-10-09 08:55] LABS: Blood Urea Nitrogen 16 mg/dl (7-17); Calcium 9.9 mg/dl (8.4-10.2); Carbon Dioxide 21 mmol/L (22-30); Chloride 101 mmol/L (98-107); Estimated Creatinine Clearance 69 ml/min; Glucose 106 mg/dl (70-99); Potassium 4.3 mmol/L (3.5-5.1); eGFR > 60.00
[2024-10-09] MEDS: WELLBUTRIN SR (12 hour sustained release) 150 MG PO (08:59)
[2024-10-09] MEDS: TYLENOL 1000 MG PO (08:59)
[2024-10-09] MEDS: LIDOCAINE 4% PATCH TOPICAL ×2 (08:59→09:06)
[2024-10-09] MEDS: COZAAR 100 MG PO (08:59)
[2024-10-09 11:40] VITALS: BP 123/71
--- NOTE | 2024-10-09 13:06 | W.PN.NEPH.PH ---
Today's Communication / Plan
-
ok for d/c
Assessment/Plan
-
Assessment
Hyponatremia= likely SIADH from chronic pain
Hypertension
Hyperlipidemia
A-fib rapid ventricular rate
Plan
[facility]
her sodium baseline since April 2024 is about 127 or 128
she is not on thiazide diuretic
I suspect she has RAKEL DH for chronic back pain
U osmo high at 570, u na 96
maintain fluid restrict 48ounces/day at d/c
increase protein her diet
avoid NSAIDs
start lasix 20mg daily and follow labs 3-5days
f/u Dr Guzman in oct
d/w primary
ok for d/c
-
-
Date of Service: October 09, 2024
CC / HPI / ROS
-
Chief Complaint:
hyponatremia
History of Present Illness:
sodium better at 132 samsca 10/07
BP stable
no fever, bicarb better at 21
Review of Systems:
no cp or sob
feels well today
Labs
-
Labs:
WBC 4.9 10^3/uL (4.8-10.8) 10/09/24 07:43
RBC 3.66 10^6/uL (4.20-5.40) L 10/09/24 07:43
Hgb 12.7 g/dL (12.0-16.0) 10/09/24 07:43
Hct 34.3 % (37.0-47.0) L 10/09/24 07:43
Plt Count 241 10^3/uL (130-400) 10/09/24 07:43
Sodium 132 mmol/L (135-145) L D 10/09/24 07:43
Potassium 4.3 mmol/L (3.5-5.1) 10/09/24 07:43
Chloride 101 mmol/L (98-107) 10/09/24 07:43
Carbon Dioxide 21 mmol/L (22-30) L 10/09/24 07:43
BUN 16 mg/dl (7-17) 10/09/24 07:43
Creatinine 0.7 mg/dL (0.6-1.0) 10/09/24 07:43
eGFR > 60.00 10/09/24 07:43
Glucose 106 mg/dl (70-99) H 10/09/24 07:43
Calcium 9.9 mg/dl (8.4-10.2) 10/09/24 07:43
Phosphorus 5.0 mg/dl (2.5-4.5) H 10/09/24 07:43
Albumin 4.6 g/dl (3.5-5.0) 10/07/24 10:00
Physical Exam
-
Vital Signs:
Vital Signs
Temp Pulse Resp BP Pulse Ox
98.1 F 95 16 123/71 97
10/09/24 11:40 10/09/24 11:40 10/09/24 11:40 10/09/24 11:40 10/09/24 11:40
Cardiovascular:: Regular rate and rhythm
Respiratory:: Bilateral: CTA
Lung Excursion:: Normal
Abdomen:: Nontender and Soft
Extremity Edema:: None: Bilateral:
[place] Catheter: No
--- NOTE | 2024-10-09 13:14 | W.DCSUMMARY ---
Discharge Summary
Discharge Data
Date of Admission: 10/07/24
Date of Discharge: 10/09/24
-
Pending Results: No
Discharge Plan
-
Patient Disposition: Home (Routine Discharge)
Discharge Diagnosis/Procedures: Acute on Chronic Hyponatremia, likely SIADH
Paroxysmal Atrial Fibrillation
Essential Hypertension
Condition: Good
Diet: Restrict fluids to 48 oz
Activity: As tolerated
Driving Restrictions: As prior to admission
Bathing Restrictions: None
Blood Work: Repeat BMP in 3-5 days of discharge, results to be forwarded to primary care provider (script provided to facilitate)
Activity Restrictions/Additional Instructions:
Please follow up with primary care provider in 1 week of discharge.
Lasix prescribed to help with hyponatremia. Recommended to take in evening as Lasix will cause increased urination.
Please take medications as prescribed/recommended and follow up with primary care provider and/or other healthcare provider involved in your care for refills and/or further adjustment to your medication regimen as necessary.
Referrals:
Ksenia Roberts CRNP [Family Provider] - in one week
Prescriptions:
New
furosemide 20 mg Tablet
20 mg PO QPM Qty: 30 0RF
Continued
simvastatin 10 mg Tablet
10 mg PO HS
losartan 100 mg Tablet
100 mg PO DAILY Qty: 30 0RF
diltiazem HCl 120 mg Capsule,Extended Release 24hr
120 mg PO HS
bupropion HCl 150 mg Tablet Sustained-Release 12 Hr
150 mg PO DAILY
acetaminophen 500 mg Tablet
1,000 mg PO DAILY
Xarelto 20 mg Tablet
20 mg PO QPM
hydralazine 10 mg tablet
10 mg PO DAILYPRN PRN (Reason: sbp>160 or dbp>90)
Discharge Orders:
Discharge Patient (As Directed); Ordered 10/09/24
Ordered By: Kalani Robert
Discharge Date and Time
Print Language: ARMENIAN
--- NOTE | 2024-10-09 13:42 | CM ---
Home today no needs.
Plan; Home no needs.
== END 2024-10-09 13:59 | disposition home or self-care (01) | DRG 644 ==
LOC: 4 WEST ACU 14:43
PROVIDERS: Physician Assistant Medical; ADMITTING PHYSICIAN Internal Medicine; ATTENDING PHYSICIAN Internal Medicine; CONSULT PHYSICIAN Internal Medicine Nephrology; EMERGENCY PHYSICIAN Emergency Medicine; FAMILY PHYSICIAN Nurse Practitioner Family
DX: E22.2 Syndrome of inappropriate secretion of antidiuretic hormone (principal); E87.20 Acidosis, unspecified; I5A Non-ischemic myocardial injury (non-traumatic); I48.0 Paroxysmal atrial fibrillation; I10 Essential (primary) hypertension; Z79.01 Long term (current) use of anticoagulants; F32.A Depression, unspecified; Z96.653 Presence of artificial knee joint, bilateral; G89.29 Other chronic pain; M54.9 Dorsalgia, unspecified; F17.210 Nicotine dependence, cigarettes, uncomplicated; E78.00 Pure hypercholesterolemia, unspecified; Z79.899 Other long term (current) drug therapy; Z91.128 Patient's intentional underdosing of medication regimen for other reason
CPT/HCPCS: 80048; 80053; 82533; 83735; 83930; 83935; 84100; 84300; 84443; 84484; 85025; 85027; 93005; 99285; 99406

== ENCOUNTER → 2024-11-06 10:46 | Outpatient (REF) | payer OTHER, SELFPAY ==
[2024-11-06 12:30] LABS: INR 1.18; PT 15.3 Sec (11.4-14.6)
[2024-11-06 12:46] LABS: Blood Urea Nitrogen 11 mg/dl (7-17); Calcium 9.8 mg/dl (8.4-10.2); Carbon Dioxide 22 mmol/L (22-30); Chloride 96 mmol/L (98-107); Glucose 116 mg/dl (70-99); Potassium 4.6 mmol/L (3.5-5.1); Sodium 131 mmol/L (135-145); eGFR > 60.00
== END ==
LOC: REG 10:46
PROVIDERS: ATTENDING PHYSICIAN Specialist; FAMILY PHYSICIAN Nurse Practitioner Family; REFERRING PHYSICIAN Internal Medicine
DX: E78.1 Pure hyperglyceridemia (principal); I48.0 Paroxysmal atrial fibrillation
CPT/HCPCS: 36415; 80048; 85610

== ENCOUNTER → 2025-01-16 14:55 | Outpatient (REF) | payer OTHER, SELFPAY | LOC: REG 14:55 | PROVIDERS: ATTENDING PHYSICIAN Nurse Practitioner Family | DX: M25.551 Pain in right hip (principal) | CPT/HCPCS: 72110; 72220; 73502 ==

== ENCOUNTER → 2025-08-07 09:42 | Outpatient (REF) | payer OTHER, SELFPAY | LOC: EMG 09:42 | PROVIDERS: ATTENDING PHYSICIAN Orthopaedic Surgery Hand Surgery; FAMILY PHYSICIAN Nurse Practitioner Family | DX: M79.641 Pain in right hand (principal); R20.0 Anesthesia of skin | CPT/HCPCS: 95886; 95909 ==

== ENCOUNTER → 2025-08-12 11:12 | Outpatient (REF) | payer OTHER, SELFPAY | LOC: HWRCS 11:12 | PROVIDERS: ATTENDING PHYSICIAN Internal Medicine; FAMILY PHYSICIAN Nurse Practitioner Family | DX: I35.8 Other nonrheumatic aortic valve disorders (principal) | CPT/HCPCS: 93306 ==